=== PATIENT | male | born 1935 | race Caucasian/White ===

== ENCOUNTER 2017-05-25 16:58 | Emergency (ER) | payer MEDICARE, OTHER ==
[2017-05-25 17:38] LABS: #Eosinphils 0.2 thou/uL (0.0-0.7); #Lymphocytes 1.3 thou/uL (1.20-3.40); #Monocytes 0.6 thou/uL (0.11-0.59); #Neutrophils 7.8 thou/uL (1.40-6.50); %Basophils 0.2 % (0.0-1.0); %Eosinophils 1.7 % (0.0-10.0); %Lymphocytes 12.6 % (21.0-51.0); %Monocytes 6.1 % (0.0-10.0); %Neutrophils 79.3 % (42.0-75.0); Mean Corpuscular HGB CONC 32.3 g/dL (32.0-36.0); Mean Corpuscular Hemoglobin 31.4 pg (27.0-31.0); Mean Corpuscular Volume 97.3 fl (80.0-94.0); Platelet Count 314 thou/uL (130-400); RBC Distribution Width 14.5 % (11.5-14.5); Red Blood Cell (RBC) Count 4.14 mill/uL (4.70-6.10); White Blood Cell (WBC) Count 9.9 thou/uL (4.8-10.8)
--- NOTE | 2017-05-25 17:51 | RAD ---
PORTABLE AP CHEST X-RAY 05/25/17 HISTORY: Dyspnea. COMPARISON: CT thorax on 07/30/16. FINDINGS: There is increased density present at the right lung base, also seen on the CT of the thorax may be m inimally improved. This has the appearance of complex loculated area of pleural fluid on the CT exam. Patchy parenchymal changes at the right lung base are also seen which may be related to either scar ring or atelectasis. There is generalized volume loss at the right hemithorax, compared to the left. The left lung is clear aside from minimal linear densities at the lung base probably related to mild scarring or atelectasis. Cardiac silhouette and pulmonary vasculature are within normal limits. Vasc ular calcifications are seen in the thoracic aorta. IMPRESSION: 1. Pleural and parenchymal changes right lung base minimally improved from prior CT thorax on . Prior CT scan of the thorax demonstrated complex loculated right pleural fluid with adjacent a telectasis which probably accounts for findings on today's examination. 2. Generalized volume loss right hemithorax. 3. Minimal linear densities at the left lung base probably related to scarring. The left lower l obe pulmonary nodule seen on CT scan exam is not readily visible on this study. POS: [facility]
[2017-05-25 18:00] LABS: ALT (SGPT) 19 U/L (8-55); AST (SGOT) 18 U/L (5-34); Alkaline Phosphatase 92 U/L (40-150); Anion Gap 14 mmol/L (10-20); BUN (Urea Nitrogen) 21 mg/dL (8.4-25.7); Bilirubin, Total 0.4 mg/dL (0.2-1.2); Calc. Creatinine Clearance 0 mL/min (70-130); Calcium 9.9 mg/dL (7.8-10.44); Carbon Dioxide 28 mmol/L (23-31); Chloride 99 mmol/L (98-107); Estimated GFR-MDRD 81; Globulin 3.9 g/dL (2.4-3.5); Glucose 106 mg/dL (83-110); Potassium 5.1 mmol/L (3.5-5.1); Protein, Total 7.9 g/dL (5.8-8.1); Sodium 136 mmol/L (136-145)
== END 2017-05-25 20:36 | disposition home or self-care (01) ==
LOC: ERS 16:58
DX: J44.1 Chronic obstructive pulmonary disease with (acute) exacerbation (principal); E78.5 Hyperlipidemia, unspecified; I11.0 Hypertensive heart disease with heart failure; I50.9 Heart failure, unspecified; J44.9 Chronic obstructive pulmonary disease, unspecified; F17.210 Nicotine dependence, cigarettes, uncomplicated
CPT/HCPCS: 36415; 71045; 80053; 85025; 93005; 94640; 94664; 94760; J7620

== ENCOUNTER 2017-06-08 10:50 | Outpatient (CLI) | payer MEDICARE, OTHER ==
--- NOTE | 2017-06-08 11:57 | RAD ---
RADIOGRAPH OF CHEST TWO VIEWS: Comparison: 01-16-09 Indication: Dyspnea. FINDINGS: There is abnormal pleural based density involving the lateral and inferior right hemithorax which is decreased in volume compared to the left. There is parenchymal consolidation at the right lower lung zone. Linear density along the mid central right lung may relate to fluid along the minor fissure and /or a component of pleural thickening. Left lung is grossly clear. There is a subtle nodular density at the infralateral left lung base, indeterminate on the basis of this exam. Cardiac silhouette is en larged. There is vascular calcification. There is prominence of the left hilum. IMPRESSION: 1. Abnormal pleural and parenchymal density of the small volume right hemithorax. Component of the co mplex underlying pleural fluid and/or mass not excluded. 2. Subtle nodular density at inferolateral left lung, incompletely assessed. Consider CT thorax for f urther assessment of the above described findings. POS: [facility]
== END 2017-06-08 10:51 | disposition home or self-care (01) ==
LOC: RAD 10:50
PROVIDERS: ATTEND Internal Medicine
DX: R06.00 Dyspnea, unspecified (principal); J98.4 Other disorders of lung
CPT/HCPCS: 71046

== ENCOUNTER 2017-09-20 12:34 | Inpatient (IN) | payer MEDICARE, OTHER ==
[2017-09-20 15:24] LABS: Anion Gap 12 mmol/L (10-20); BUN (Urea Nitrogen) 12 mg/dL (8.4-25.7); Calc. Creatinine Clearance 0 mL/min (70-130); Calcium 8.8 mg/dL (7.8-10.44); Carbon Dioxide 33 mmol/L (23-31); Chloride 96 mmol/L (98-107); Estimated GFR-MDRD Greater than 90; Glucose 150 mg/dL (83-110); Magnesium 1.3 mg/dL (1.6-2.6); Sodium 138 mmol/L (136-145)
[2017-09-20 15:28] LABS: Troponin I 0.023 ng/mL (< 0.028)
[2017-09-20] MEDS ORDERED: Magnesium 2 GM/NS 0.9% 100 ML 2 GM in Premix Bag 1 BAG IVPB SCH (16:30)
[2017-09-20] MEDS: Potassium Chloride 20 MEQ TAB PO SCH (17:32)
[2017-09-20] MEDS ORDERED: Acetaminophen 325 MG TAB PO PRN (19:10)
[2017-09-20] MEDS ORDERED: Senokot 8.6 MG TAB PO PRN (19:10)
[2017-09-20] MEDS ORDERED: Ondansetron ODT 4 MG TAB PO PRN (19:10)
[2017-09-20] MEDS ORDERED: Ondansetron HCl/PF 4 MG/2 ML Vial IVP PRN (19:10)
[2017-09-20] MEDS ORDERED: Milk Of Magnesia 30 ML UDCUP PO PRN (19:10)
[2017-09-20] MEDS ORDERED: Calcium Carbonate 500 MG ChewTAB PO PRN (19:10)
--- NOTE | 2017-09-20 20:11 | HP ---
DATE OF ADMISSION: 09/20/2017 PRIMARY CARE PHYSICIAN: Flaca Escobar M.D. PRIMARY SHIPS EQUIPMENT ENGINEER: Andrea Khan M.D. PRIMARY COCONUT JELLY ROLLER: Parminder Low MD CHIEF COMPLAINT: Shortness of breath and cough of 4 days' duration. HISTORY OF PRESENT ILLNESS: The patient is an 81-year-old male with COPD and chronic systolic heart failure, presented to the emergency room at [place] with above symptoms. Over the last four days, the patient developed gradual worsening shortness of breath along with chest tightness, wheezing, and cough that was productive of thick brownish to yellowish phlegm. He tried using his inhalers without much relief. No recent immobilization, travel, sick contacts reported. He cannot recall any fever. He denies any palpitations, lightheadedness, dizziness or syncope. In the emergency room, his initial vital signs showed temperature of 98.4, respirations 18, pulse rate of 91 with blood pressure 148/85 with O2 saturation 83%. He received ceftriaxone, azithromycin, Lasix, potassium chloride, aspirin , nitropatch, oral potassium, DuoNebs with 125 Solu-Medrol, and was transferred to this facility with a diagnosis of CHF and COPD exacerbation with possible pneumonia. PAST MEDICAL HISTORY: 1. COPD. 2. Hyperlipidemia 3. Chronic systolic heart failure, followed by Dr. Khan. 4. Benign prostatic hypertrophy. 5. Coronary artery disease. 6. Hypertension. PAST SURGICAL HISTORY: 1. Cataract surgery. 2. Thoracentesis. 3. Cystoscopy. ALLERGIES: The patient denies any drug allergies. CURRENT HOME MEDICATIONS: The patient cannot recall any of his home medications. Family to bring all the medication bottles tomorrow. SOCIAL HISTORY: The patient currently lives at home. Quit smoking last month. He has a long history of smoking. He currently lives at home with his family. He is FULL CODE. He makes his own decisions with the help of his family. He denies any alcohol or drug use. FAMILY HISTORY: Both parents had congestive heart failure. REVIEW OF SYSTEMS: The following complete review of systems was negative, unless otherwise mentioned in the HPI or below: Constitutional: Weight loss or gain, ability to conduct usual activities. Skin: Rash, itching. Eyes: Double vision, pain. ENT/Mouth: Nose bleeding, neck stiffness, pain, tenderness. Cardiovascular: Palpitations, dyspnea on exertion, orthopnea. Respiratory: Shortness of breath, wheezing, cough, hemoptysis, fever or night sweats. Gastrointestinal: Poor appetite, abdominal pain, heartburn, nausea, vomiting, constipation, or diarrhea. Genitourinary: Urgency, frequency, dysuria, nocturia. Musculoskeletal: Pain, swelling. Neurologic/Psychiatric: Anxiety, depression. Allergy/Immunologic: Skin rash, bleeding tendency. PHYSICAL EXAMINATION: VITAL SIGNS: As discussed above. GENERAL: An 81-year-old male in mild to moderate respiratory distress, able to complete short phrases. HEENT: Head: Atraumatic, normocephalic. Sclerae are anicteric. Moist mucous membranes. No oral lesion. NECK: Supple. JVD appears to be elevated. No carotid bruit. LUNGS: Show diffuse expiratory wheezing with scattered bibasilar rales. There was accessory muscle use. Scattered rhonchi. HEART: S1, S2 present. Regular rate and rhythm, 2/6 systolic murmur over the mitral area. No heaves or pulsation. ABDOMEN: Soft, nontender, bowel sounds present, no rebound or guarding. EXTREMITIES: 2+ edema in bilateral lower extremities up to the knees. No calf tenderness. SKIN: Warm and dry. LYMPH NODES: No palpable lymph nodes in the neck. PERIPHERAL VASCULAR: Radial pulses palpable bilaterally. MUSCULOSKELETAL: No joint swelling or tenderness. LABORATORY FINDINGS: CBC showed WBC of 15.6 with hemoglobin 11.4, hematocrit 32.7, platelet count of 313. Chemistries showed sodium 138, potassium 2.8, chloride 95, bicarbonate 33, BUN 12, creatinine 0.7. BNP was 1264, albumin 2.7. Troponins were negative. IMAGING: EKG by my review showed sinus rhythm with nonspecific ST-T wave changes. Chest x-ray by my review showed pulmonary vascular congestion with suspected pneumonia at the right base. Official report is pending at this time. IMPRESSION AND PLAN: 1. Acute hypoxic respiratory failure secondary to congestive heart failure and chronic obstructive pulmonary disease exacerbation. 2. Acute chronic obstructive pulmonary disease exacerbation. We will continue nebulizer treatment with steroids, oxygen. We will consult Dr. Lwo in the morning. 3. Acute on chronic systolic heart failure exacerbation, ACC Stage C. We will consult Dr. Khan. Per patient report, he had recent stress test and echocardiogram. We will continue gentle diuretics. We will consult cardiac rehabilitation. Fluid restriction. We will start him on KEVIN inhibitors. Please note that patient is out of [facility] for more than a week per patient report. 4. Hypertension. We will resume his home medications once confirmed. We will add p.r.n. antihypertensives. 5. Hypokalemia, we will replace. 6. Hypomagnesemia, we will replace. 7. Moderate protein-calorie malnutrition. 8. Chronic respiratory failure, on home oxygen. 9. Benign prostatic hypertrophy. We will resume home medications once confirmed. 10. Hyperlipidemia. 11. Former smoker. The patient quit smoking last month. Plan of care was discussed with the patient in detail. He stated understanding. JORDYND
[2017-09-20] MEDS: Famotidine 20 MG TAB PO SCH (20:58)
[2017-09-20] MEDS: Montelukast Sodium 10 mg Tablet PO SCH (20:58)
[2017-09-20] MEDS: Doxycycline 100 MG CAP PO SCH (20:58)
[2017-09-20] MEDS: Lisinopril 2.5 MG TAB PO SCH (20:58)
[2017-09-20] MEDS: Atorvastatin Calcium 40 MG TAB PO SCH (20:59)
[2017-09-20] MEDS: Docusate 100 MG CAP PO SCH (20:59)
[2017-09-20] MEDS: Spironolactone 25 MG TAB PO SCH (21:00)
[2017-09-20] MEDS ORDERED: Potassium Chloride 20 MEQ TAB PO SCH (21:00)
[2017-09-21 04:47] LABS: #Lymphocytes 0.5 thou/uL (1.20-3.40); #Monocytes 0.5 thou/uL (0.11-0.59); #Neutrophils 9.5 thou/uL (1.40-6.50); %Basophils 0.4 % (0.0-1.0); %Eosinophils 0.1 % (0.0-10.0); %Lymphocytes 5.1 % (21.0-51.0); %Monocytes 4.7 % (0.0-10.0); %Neutrophils 89.8 % (42.0-75.0); Hemoglobin 10.3 g/dL (14.0-18.0); Mean Corpuscular HGB CONC 31.9 g/dL (32.0-36.0); Mean Corpuscular Hemoglobin 30.1 pg (27.0-31.0); Mean Corpuscular Volume 94.4 fl (80.0-94.0); Mean Platelet Volume 7.1 fL (7.4-10.4); Platelet Count 295 thou/uL (130-400); RBC Distribution Width 14.5 % (11.5-14.5); Red Blood Cell (RBC) Count 3.41 mill/uL (4.70-6.10); White Blood Cell (WBC) Count 10.6 thou/uL (4.8-10.8)
[2017-09-21 05:21] LABS: ALT (SGPT) 35 U/L (8-55); AST (SGOT) 22 U/L (5-34); Albumin 2.5 g/dL (3.4-4.8); Alkaline Phosphatase 118 U/L (40-150); Anion Gap 11 mmol/L (10-20); BUN (Urea Nitrogen) 16 mg/dL (8.4-25.7); Bilirubin, Total 0.5 mg/dL (0.2-1.2); Calc. Creatinine Clearance 90 mL/min (70-130); Calcium 8.3 mg/dL (7.8-10.44); Carbon Dioxide 32 mmol/L (23-31); Chloride 98 mmol/L (98-107); Estimated GFR-MDRD Greater than 90; Globulin 2.8 g/dL (2.4-3.5); Glucose 153 mg/dL (83-110); Magnesium 1.7 mg/dL (1.6-2.6); Phosphorus 2.9 mg/dL (2.3-4.7); Potassium 3.6 mmol/L (3.5-5.1); Protein, Total 5.3 g/dL (5.8-8.1); Sodium 137 mmol/L (136-145)
[2017-09-21] MEDS ORDERED: Sodium Chloride 0.9% 10 ML ONE (05:34)
[2017-09-21] MEDS: Furosemide 20 MG/2 ML VIAL SLOW IVP SCH ×2 (05:54→14:07)
[2017-09-21] MEDS: Famotidine 20 MG TAB PO SCH ×2 (08:54→20:48)
[2017-09-21] MEDS: Doxycycline 100 MG CAP PO SCH ×2 (08:54→20:47)
[2017-09-21] MEDS: Lisinopril 2.5 MG TAB PO SCH (08:54)
[2017-09-21] MEDS: Spironolactone 25 MG TAB PO SCH (08:54)
[2017-09-21] MEDS: Potassium Chloride 20 MEQ TAB PO SCH ×2 (08:54→16:14)
[2017-09-21] MEDS: Enoxaparin Sodium 30 MG/0.3 ML SYRINGE SC SCH (08:54)
[2017-09-21] MEDS: Aspirin 81 mg Enteric Coated Tablet PO SCH (08:55)
[2017-09-21] MEDS: Docusate 100 MG CAP PO SCH ×2 (08:55→20:48)
[2017-09-21] MEDS ORDERED: cefTRIAXone\\ROCEPHIN 1 GM in Sodium Chloride 0.9% 100 ML IVPB SCH (09:00)
[2017-09-21] MEDS ORDERED: Nebivolol HCl 2.5 MG TAB PO SCH (09:00)
[2017-09-21] MEDS ORDERED: Albuterol Sulfate 2.5 mg/3 ml Neb NEB PRN (15:27)
[2017-09-21] MEDS ORDERED: predniSONE 20 MG TAB PO SCH (15:30)
--- NOTE | 2017-09-21 15:30 | CON ---
DATE OF CONSULTATION: 09/21/2017 REASON FOR CONSULTATION: Acute on chronic systolic heart failure. PRIMARY CLINICAL ADMISSIONS MANAGER: Andrea Khan M.D. HISTORY OF PRESENT ILLNESS: Mr. Kerr is an 81-year-old gentleman with a previous history of cardiom yopathy with LVEF of 40%-45% and recently he stated he had increased shortness of breath. History is very difficult to obtain from Mr. Barriga. He is vague. He does state he has had weight loss, but barker s had significant lower extremity edema. He has chronic shortness of breath and has chronic COPD. Gennaro renner recently stopped all tobacco products 2 months ago after recent hospitalization. He also states he has been out of his Bystolic at home. PAST MEDICAL HISTORY: Systolic heart failure, BPH, CAD, hypertension, hyperlipidemia, COPD, cataract surgery, cystoscopy. ALLERGIES: None. SOCIAL HISTORY: As above. No alcohol use. FAMILY HISTORY: Negative for CAD. HOME MEDICATIONS: Include Bystolic, Lipitor, Singulair, lisinopril, aspirin, and spironolactone. REVIEW OF SYSTEMS: Ten-point review of systems reviewed as above, otherwise negative. PHYSICAL EXAMINATION: GENERAL: Patient is a pleasant male who is in no acute distress. The patient appears his stated age . VITAL SIGNS: Blood pressure 130/80, pulse 85, temperature 97.2. NEUROLOGIC: The patient is alert and oriented times 3 with no focal neurologic deficits. HEENT: Sclerae without icterus. Mouth has moist mucous membranes with normal pallor. NECK: No JVD. Carotid upstroke brisk. No bruits bilaterally. LUNGS: Rhonchi and rales bilaterally with mild crackles. BACK: No scoliosis or kyphosis. CARDIAC: Regular rate and rhythm with normal S1 and S2. No S3 or S4 noted. No significant rubs, murmurs, thrills, or gallops noted throughout the precordium. PMI is not displaced. There is no parasternal heave. ABDOMEN: Soft, nontender, nondistended. No peritoneal signs present. No hepatosplenomegaly. No abnormal striae. EXTREMITIES: 1-2+ pitting edema. SKIN: No gross abnormalities. PERTINENT LABORATORY DATA: Hemoglobin 10.3, creatinine 0.65, troponin 0.02. BNP of 1264. IMPRESSION: 1. Acute on chronic systolic heart failure. 2. Chronic obstructive pulmonary disease. 3. Coronary artery disease. RECOMMENDATIONS: The patient has been placed on 20 mg Lasix IV. We will increase to 40 mg IV. He h as also been placed back on his Bystolic. Continue antibiotic therapy. Also, continue lisinopril as prescribed. Echo with Doppler pending.
--- NOTE | 2017-09-21 16:42 | PDOC.PN ---
- Subjective Encounter Start Date: 09/21/17 Encounter Start Time: 15:00 Patient seen and examined for Resp failure. SOB improving. No new complaints. No overnight events - Objective Resuscitation Status: Resuscitation Status FULL:Full Resuscitation MAR Reviewed: Yes Vital Signs & Weight: Vital Signs (12 hours) Temp Pulse Resp BP BP Pulse Ox 09/21/17 15:52 97.9 F 107 H 18 123/87 95 09/21/17 14:34 88 20 85 L 09/21/17 12:00 97.2 F L 85 18 130/80 92 L 09/21/17 10:48 99 09/21/17 10:47 79 16 99 09/21/17 08:54 84 142/75 H 09/21/17 08:00 97.5 F L 84 18 142/75 H 99 09/21/17 07:15 77 18 99 Weight Admit Weight 154 lb 1 oz Weight 153 lb 4.8 oz I&O: 09/20/17 09/21/17 09/22/17 06:59 06:59 06:59 Intake Total 202 Output Total 300 Balance -98 Result Diagrams: 09/24/17 05:05 09/25/17 05:01 EKG Reviewed by me: Yes (Tele SR) Phys Exam - Physical Examination Pt in mild resp distress Respiratory: no rales Scat rhonchi/wheezing, Accessory muscle use, Symmetrical Cardiovascular: RRR, no rub no heaves/pulsations Gastrointestinal: soft, non-tender, no distention, positive bowel sounds Musculoskeletal: pulses present, edema present Neurological: non-focal, normal sensation, moves all 4 limbs Psychiatric: normal affect, A&O x 3 Dx/Plan (1) Acute hypoxemic respiratory failure Code(s): J96.01 - ACUTE RESPIRATORY FAILURE WITH HYPOXIA Status: Acute (2) Acute on chronic systolic heart failure Code(s): I50.23 - ACUTE ON CHRONIC SYSTOLIC (CONGESTIVE) HEART FAILURE Status : Acute Comment: improving, EF 35-40 % (3) COPD exacerbation Code(s): J44.1 - CHRONIC OBSTRUCTIVE PULMONARY DISEASE W (ACUTE) EXACERBATION Status: Acute Comment: improving (4) Electrolyte abnormality Code(s): E87.8 - OTH DISORDERS OF ELECTROLYTE AND FLUID BALANCE, NEC Status: Acute Comment: Hypokalemia/Hypomagnesemia (5) Pressure ulcer Code(s): L89.90 - PRESSURE ULCER OF UNSPECIFIED SITE, UNSPECIFIED STAGE Status : Chronic Comment: STAGE II PRESSURE ULCER TO R GREAT TOE,MEDIAL ASPECT/STAGE III PRESSURE ULCER TO L MEDIAL BUTTOCK - Present on admission - Plan out of bed/ambulate, DVT proph w/lovenox, DVT proph w/SCDs Cont diuresis, All home meds verified -: Cont Nebs/Atbx/Steroids -: AM labs -: Resume Flomax -: Cont to monitor, Cont current meds as below, Leg elevation Review of Systems - Review of Systems Respiratory: Cough, Dry, SOB with Excertion. negative: Shortness of Breath, Hemoptysis, Pleuritic Pain, Sputum, Wheezing Cardiovascular: negative: chest pain, palpitations, orthopnea, paroxysmal nocturnal dyspnea, edema, light headedness, other Gastrointestinal: negative: Nausea, Vomiting, Abdominal Pain, Diarrhea, Constipation, Melena, Hematochezia, Other - Medications/Allergies Allergies/Adverse Reactions: Allergies Allergy/AdvReac Type Severity Reaction Status Date / Time No Known Drug Allergies Allergy Verified 09/21/17 08:53 Medications: Current Medications Acetaminophen (Tylenol) 650 mg PO Q4H PRN PRN Reason: Headache/Fever or Pain Albuterol Sulfate (Ventolin) 2.5 mg NEB [id number] PRN PRN Reason: Wheezing Albuterol/Ipratropium (Duoneb) 3 ml NEB [id number] [facility] Aspirin (Ecotrin) 81 mg PO DAILY [facility] Last Admin: 09/21/17 08:55 Dose: 81 mg Atorvastatin Calcium (Lipitor) 40 mg PO HS [facility] Last Admin: 09/20/17 20:59 Dose: 40 mg Calcium Carbonate (Tums) 1,000 mg PO Q4H PRN PRN Reason: Heartburn or Indigestion Cefdinir (Omnicef) 300 mg PO BID [facility] Stop: 09/25/17 21:01 Docusate Sodium (Colace) 100 mg PO BID [facility] Last Admin: 09/21/17 08:55 Dose: 100 mg Doxycycline Hyclate (Vibramycin) 100 mg PO BID [facility] Last Admin: 09/21/17 08:54 Dose: 100 mg Dutasteride (Avodart) 0.5 mg PO DAILY [facility] Enoxaparin Sodium (Lovenox) 30 mg SC 0900 [facility] Last Admin: 09/21/17 08:54 Dose: 30 mg Famotidine (Pepcid) 20 mg PO BID [facility] Last Admin: 09/21/17 08:54 Dose: 20 mg Furosemide (Lasix) 20 mg SLOW IVP 0600,1400 [facility] Last Admin: 09/21/17 14:07 Dose: 20 mg Lisinopril (Zestril) 2.5 mg PO BID [facility] Last Admin: 09/21/17 08:54 Dose: 2.5 mg Magnesium Hydroxide (Milk Of Magnesium) 30 ml PO DAILYPRN PRN PRN Reason: Constipation Montelukast Sodium (Singulair) 10 mg PO [facility] Last Admin: 09/20/17 20:58 Dose: 10 mg Nebivolol (Bystolic) 2.5 mg PO DAILY [facility] Last Admin: 09/21/17 08:54 Dose: 2.5 mg Ondansetron HCl (Zofran Odt) 4 mg PO Q6H PRN PRN Reason: Nausea/Vomiting Ondansetron HCl (Zofran) 4 mg IVP Q6H PRN PRN Reason: Nausea/Vomiting Potassium Chloride (K-Dur) 20 meq PO BID-[facility] Last Admin: 09/21/17 16:14 Dose: 20 meq Prednisone (Prednisone) 40 mg PO NOW [facility] Stop: 09/21/17 17:30 Last Admin: 09/21/17 16:14 Dose: 40 mg Prednisone (Prednisone) 40 mg PO QAM-[facility] Stop: 09/25/17 08:01 Senna (Senokot) 2 tab PO HSPRN PRN PRN Reason: Constipation Spironolactone (Aldactone) 12.5 mg PO BID [facility] Last Admin: 09/21/17 08:54 Dose: 12.5 mg Tamsulosin HCl (Flomax) 0.4 mg PO [facility]
[2017-09-21] MEDS ORDERED: Furosemide 40 MG/4 ML VIAL SLOW IVP SCH (18:00)
--- NOTE | 2017-09-21 20:16 | CON ---
DATE OF CONSULTATION: 09/21/2017 SERVICE: Pulmonary Medicine. REASON FOR CONSULTATION: COPD exacerbation. HISTORY OF PRESENT ILLNESS: The patient is an 81-year-old white male with past medical history significant for profound COPD. He also has chronic systolic heart failure. He was in his usual state of health until about 4-5 days prior to admission. He had recently been in to his . She has been admitted to the facility in [place]. Unfortunately, he ran out of some of his medication. They were mail order medications. He did not have them for several days. He then developed increasing cough, congestion, shortness of breath, dyspnea on exertion. He started bringing up yellow sputum. He currently denies any fevers , chills, nausea or vomiting. I presented to the Emergency Department and was expecting to get sent back home. He did not take his oxygen to the Emergency Department and presented with saturations of 83%. He subsequently transitioned here. He denies any current fevers, chills, nausea, vomiting, otherwise comes in his usual state of health and has no specific complaints. PAST MEDICAL HISTORY: 1. COPD, profound. 2. Chronic hypoxic respiratory failure. 3. Chronic systolic heart failure. 4. BPH. 5. Coronary artery disease. 6. Hypertension. 7. Dyslipidemia. PAST SURGICAL HISTORY: 1. History of thoracentesis. 2. Cystoscopy. 3. Cataract surgery. ALLERGIES: No known drug allergies. MEDICATIONS LIST: List of his inpatient medications were reviewed. They were modified. SOCIAL HISTORY: Currently negative for tobacco, alcohol or illicit drug use. He has a greater than [id number] history of smoking, but quit only last month. He has no exposure to chemicals, dust asbestos or tuberculosis. FAMILY HISTORY: Noncontributory. REVIEW OF SYSTEMS: General, head, ears, eyes, nose, throat, cardiovascular, respiratory, GI, , musculoskeletal, neurologic and skin is negative except as stated in the HPI. PHYSICAL EXAMINATION: VITAL SIGNS: Afebrile, pulse 85, blood pressure 130/80, respirations 18, saturation 92% on room air. GENERAL: The patient is awake, alert, no apparent distress. LUNGS: Rhonchi are present. There is very poor airway movement. Dependent crackles are minimal. I cannot hear or appreciate any wheezing, but is truthfully not moving enough air to do that. He has a prolonged expiratory phase. HEART: Normal rate, regular. ABDOMEN: Soft, nontender, nondistended. Bowel sounds are positive. MUSCULOSKELETAL: No cyanosis or clubbing. No pitting in the bilateral lower extremities. LABORATORY DATA: WBC 10.6 and down trending, hemoglobin 10.3, platelets 295, 000. Potassium 3.6 and up trending. Basic metabolic profile and liver function studies are unremarkable. Troponin is negative. BNP is elevated at 1267, which is well above baseline, the last time it was collected; however, was 3 years ago. Cardiac enzymes are unremarkable. Blood cultures x2 are negative. IMAGING: Chest x-ray demonstrates a right-sided pleural effusion. The left lung has good aeration. There is flattening of the diaphragm. ASSESSMENT: 1. Acute on chronic hypoxic respiratory failure. 2. Acute on chronic systolic heart failure. 3. Chronic obstructive pulmonary disease with acute exacerbation. 4. Right-sided pleural effusion, enlarging. 5. Hypokalemia. PLAN: We will continue replacing his potassium. We will aggressively diurese him to euvolemia. Once he arrives there, repeat chest x-ray will be performed. If the effusion is resolving, we will likely just repeat a chest x-ray in the outpatient setting. If on the other hand, he clinically gets worse or the effusion persists/enlarges, we will undergo thoracentesis in 1-2 days. He will need to remain in the hospital for at least the next 24-48 hours while we address this issue. 70 minutes have been devoted to this patient in various activities. I personally reviewed all imaging studies and laboratory data noted within this document. For fifty percent of this time, I was interacting with the patient at the bedside or coordinating care with the care team. For the remainder of the time I was immediately available to the patient in the hospital unit. BERNARD
[2017-09-21] MEDS: Tamsulosin HCl 0.4 MG CAP PO SCH (20:47)
[2017-09-21] MEDS: Atorvastatin Calcium 40 MG TAB PO SCH (20:47)
[2017-09-21] MEDS: Montelukast Sodium 10 mg Tablet PO SCH (20:48)
[2017-09-21] MEDS: Cefdinir 300 MG CAP PO SCH (20:48)
[2017-09-21] MEDS ORDERED: Lisinopril 5 MG TAB PO SCH (21:00)
[2017-09-22 04:58] LABS: #Lymphocytes 0.8 thou/uL (1.20-3.40); #Neutrophils 12.4 thou/uL (1.40-6.50); %Basophils 0.2 % (0.0-1.0); %Eosinophils 0.1 % (0.0-10.0); %Lymphocytes 5.4 % (21.0-51.0); %Monocytes 7.1 % (0.0-10.0); %Neutrophils 87.2 % (42.0-75.0); Hemoglobin 10.7 g/dL (14.0-18.0); Mean Corpuscular HGB CONC 31.7 g/dL (32.0-36.0); Mean Corpuscular Volume 94.6 fl (80.0-94.0); Mean Platelet Volume 6.6 fL (7.4-10.4); Platelet Count 318 thou/uL (130-400); RBC Distribution Width 14.3 % (11.5-14.5); Red Blood Cell (RBC) Count 3.57 mill/uL (4.70-6.10); White Blood Cell (WBC) Count 14.2 thou/uL (4.8-10.8)
[2017-09-22 05:19] LABS: ALT (SGPT) 46 U/L (8-55); AST (SGOT) 27 U/L (5-34); Albumin 2.7 g/dL (3.4-4.8); Alkaline Phosphatase 114 U/L (40-150); Anion Gap 9 mmol/L (10-20); BUN (Urea Nitrogen) 18 mg/dL (8.4-25.7); Bilirubin, Total 0.4 mg/dL (0.2-1.2); Calc. Creatinine Clearance 82 mL/min (70-130); Calcium 8.6 mg/dL (7.8-10.44); Carbon Dioxide 37 mmol/L (23-31); Chloride 96 mmol/L (98-107); Estimated GFR-MDRD Greater than 90; Glucose 149 mg/dL (83-110); Magnesium 1.6 mg/dL (1.6-2.6); Phosphorus 3.5 mg/dL (2.3-4.7); Potassium 3.5 mmol/L (3.5-5.1); Protein, Total 5.7 g/dL (5.8-8.1); Sodium 138 mmol/L (136-145)
[2017-09-22] MEDS ORDERED: Furosemide 40 MG/4 ML VIAL SLOW IVP SCH ×2 (06:00→09:15)
--- NOTE | 2017-09-22 07:59 | PQF ---
CLINICAL DOCUMENTATION IMPROVEMENT CLARIFICATION FORM: ICD-10 Updated PLEASE DO AN ADDENDUM TO THE PROGRESS NOTE WITH ANY DOCUMENTATION UPDATES OR ADDITIONS AND CARRY THROUGH TO DC SUMMARY. THANK YOU. DATE: 09/22 ATTN: DR. CHRISTIANO MOLINA Please exercise your independent, professional judgment in responding to the clarification form. Clinical indicators are provided on the bottom of this form for your review Please check appropriate box(s): I (concur) with the Wound Care findings as stated below. [ ] Pressure Ulcer: (Stage I: Erythema; Stage II: Partial thickness; Stage III : Full thickness; Stage IV: Necrosis to muscle/bone) [ ] Location: POA: [ ] Yes [ ] No[ ] Unable to determine Stage (I to IV): (Left Right Bilateral N/A ) [ ] Location: POA: [ ] Yes [ ] No[ ] Unable to determine Stage (I to IV): (Left Right Bilateral N/A ) [ ] Location: POA: [ ] Yes [ ] No[ ] Unable to determine Stage (I to IV): (Left Right Bilateral N/A ) [ ] Other diagnosis [ ] Unable to determine In addition, please specify: Present on Admission (POA): [ ] Yes [ ] No [ ] Unable to determine For continuity of documentation, please document condition throughout progress notes and discharge summary. Thank You. CLINICAL INDICATORS - SIGNS / SYMPTOMS / LABS NURSING ADMISSION SKIN ASSESSMENT 5/14: STAGE III PRESSURE ULCER TO L BUTTOCK WOUND CARE CONSULT DOCUMENTATION 09/21: STAGE II PRESSURE ULCER TO R GREAT TOE, MEDIAL ASPECT STAGE III PRESSURE ULCER TO L MEDIAL BUTTOCK RISK FACTORS: MODERATE PROTEIN CALORIE MALNUTRITION (PHYSICIAN H&P) LOW ALBUMIN (2.5-2.7, 09/21 & ) TREATMENTS: WOUND CARE CONSULT & TREATMENT SPECIALTY MATTRESS TURN Q2 HRS THANK YOU! Natalie (This form is maintained as a part of the permanent medical record) 2014 [employer]. All Rights Reserved Natalie Oakley RN, BSN [email or web address] Office: [phone] [facility] SYSTEM[facility]
[2017-09-22] MEDS ORDERED: Carvedilol 3.125 MG TAB PO SCH ×2 (08:00→08:55)
[2017-09-22] MEDS ORDERED: Lisinopril 5 MG TAB PO SCH (08:53)
[2017-09-22] MEDS: Aspirin 81 mg Enteric Coated Tablet PO SCH (08:54)
[2017-09-22] MEDS: Spironolactone 25 MG TAB PO SCH (08:54)
[2017-09-22] MEDS: Cefdinir 300 MG CAP PO SCH ×2 (08:54→21:22)
[2017-09-22] MEDS: predniSONE 20 MG TAB PO SCH (08:54)
[2017-09-22] MEDS: Potassium Chloride 20 MEQ TAB PO SCH ×3 (08:54→16:16)
[2017-09-22] MEDS: Doxycycline 100 MG CAP PO SCH ×2 (08:55→21:22)
[2017-09-22] MEDS: Dutasteride 0.5 MG CAP PO SCH (08:55)
[2017-09-22] MEDS: Enoxaparin Sodium 30 MG/0.3 ML SYRINGE SC SCH (08:55)
[2017-09-22] MEDS: Famotidine 20 MG TAB PO SCH ×2 (08:55→21:22)
[2017-09-22] MEDS: Docusate 100 MG CAP PO SCH ×2 (08:55→21:22)
[2017-09-22] MEDS ORDERED: Carvedilol 6.25 MG TAB PO SCH (09:15)
[2017-09-22] MEDS ORDERED: Lisinopril 10 MG TAB PO SCH ×2 (09:30→21:00)
[2017-09-22] MEDS: Furosemide 100 MG/10 ML VIAL SLOW IVP SCH (14:20)
[2017-09-22] MEDS: Carvedilol 6.25 MG TAB PO SCH (16:16)
--- NOTE | 2017-09-22 20:18 | PDOC.PN ---
- Subjective Encounter Start Date: 09/22/17 Encounter Start Time: 19:00 Patient seen and examined for resp failure. SOB improving. Diuresing well. No new complaints. No overnight events - Objective Resuscitation Status: Resuscitation Status FULL:Full Resuscitation MAR Reviewed: Yes Vital Signs & Weight: Vital Signs (12 hours) Temp Pulse Resp BP Pulse Ox 09/22/17 19:40 76 16 96 09/22/17 16:15 97.6 F 79 17 138/76 98 09/22/17 15:10 77 18 98 09/22/17 11:18 97.7 F 87 22 H 133/76 97 09/22/17 08:51 97.5 F L 101 H 22 H 154/72 H 92 L Weight Admit Weight 154 lb 1 oz Weight 152 lb I&O: 09/21/17 09/22/17 09/23/17 06:59 06:59 06:59 Intake Total 202 1440 500 Output Total 300 2150 2024 Balance -98 -710 -1525 Result Diagrams: 09/24/17 05:05 09/25/17 05:01 EKG Reviewed by me: Yes (Tele SR) Phys Exam - Physical Examination Constitutional: NAD Respiratory: no wheezing, no rhonchi Scat rales at bases Cardiovascular: RRR, no rub Gastrointestinal: soft, positive bowel sounds Musculoskeletal: edema present Neurological: moves all 4 limbs Dx/Plan (1) Acute hypoxemic respiratory failure Code(s): J96.01 - ACUTE RESPIRATORY FAILURE WITH HYPOXIA Status: Acute (2) Acute on chronic systolic heart failure Code(s): I50.23 - ACUTE ON CHRONIC SYSTOLIC (CONGESTIVE) HEART FAILURE Status : Acute Comment: improving, EF 35-40 % (3) COPD exacerbation Code(s): J44.1 - CHRONIC OBSTRUCTIVE PULMONARY DISEASE W (ACUTE) EXACERBATION Status: Acute Comment: improving (4) Electrolyte abnormality Code(s): E87.8 - OTH DISORDERS OF ELECTROLYTE AND FLUID BALANCE, NEC Status: Acute Comment: Hypokalemia/Hypomagnesemia (5) Pressure ulcer Code(s): L89.90 - PRESSURE ULCER OF UNSPECIFIED SITE, UNSPECIFIED STAGE Status : Chronic Comment: STAGE II PRESSURE ULCER TO R GREAT TOE,MEDIAL ASPECT/STAGE III PRESSURE ULCER TO L MEDIAL BUTTOCK - Present on admission - Plan respiratory therapy, DVT proph w/lovenox, DVT proph w/SCDs Cont diuretics/ACEI/Aldactone -: Cont Prednisone/Atbx/Nebs -: AM labs -: Cont to monitor -: Home O2 eval in AM Review of Systems - Review of Systems Constitutional: negative: fever, chills, sweats, weakness, malaise, other Gastrointestinal: negative: Nausea, Vomiting, Abdominal Pain, Diarrhea, Constipation, Melena, Hematochezia, Other - Medications/Allergies Allergies/Adverse Reactions: Allergies Allergy/AdvReac Type Severity Reaction Status Date / Time No Known Drug Allergies Allergy Verified 09/21/17 08:53 Medications: Current Medications Acetaminophen (Tylenol) 650 mg PO Q4H PRN PRN Reason: Headache/Fever or Pain Albuterol Sulfate (Ventolin) 2.5 mg NEB [id number] PRN PRN Reason: Wheezing Albuterol/Ipratropium (Duoneb) 3 ml NEB [id number] [facility] Last Admin: 09/22/17 19:40 Dose: 3 ml Aspirin (Ecotrin) 81 mg PO DAILY [facility] Last Admin: 09/22/17 08:54 Dose: 81 mg Atorvastatin Calcium (Lipitor) 40 mg PO HS [facility] Last Admin: 09/21/17 20:47 Dose: 40 mg Calcium Carbonate (Tums) 1,000 mg PO Q4H PRN PRN Reason: Heartburn or Indigestion Carvedilol (Coreg) 6.25 mg PO BID-[facility] Last Admin: 09/22/17 16:16 Dose: 6.25 mg Cefdinir (Omnicef) 300 mg PO BID [facility] Stop: 09/25/17 21:01 Last Admin: 09/22/17 08:54 Dose: 300 mg Docusate Sodium (Colace) 100 mg PO BID [facility] Last Admin: 09/22/17 08:55 Dose: 100 mg Doxycycline Hyclate (Vibramycin) 100 mg PO BID [facility] Last Admin: 09/22/17 08:55 Dose: 100 mg Dutasteride (Avodart) 0.5 mg PO DAILY [facility] Last Admin: 09/22/17 08:55 Dose: 0.5 mg Enoxaparin Sodium (Lovenox) 30 mg SC 0900 [facility] Last Admin: 09/22/17 08:55 Dose: 30 mg Famotidine (Pepcid) 20 mg PO BID [facility] Last Admin: 09/22/17 08:55 Dose: 20 mg Furosemide (Lasix) 80 mg SLOW IVP 0600,1400 [facility] Last Admin: 09/22/17 14:20 Dose: 80 mg Lisinopril (Zestril) 10 mg PO BID [facility] Magnesium Hydroxide (Milk Of Magnesium) 30 ml PO DAILYPRN PRN PRN Reason: Constipation Montelukast Sodium (Singulair) 10 mg PO [facility] Last Admin: 09/21/17 20:48 Dose: 10 mg Ondansetron HCl (Zofran Odt) 4 mg PO Q6H PRN PRN Reason: Nausea/Vomiting Ondansetron HCl (Zofran) 4 mg IVP Q6H PRN PRN Reason: Nausea/Vomiting Potassium Chloride (K-Dur) 20 meq PO TID-[facility] Stop: 09/22/17 23:59 Last Admin: 09/22/17 16:16 Dose: 20 meq [facility]) [facility] Stop: 09/25/17 08:01 Last Admin: 09/22/17 08:54 Dose: 40 mg Senna (Senokot) 2 tab PO HSPRN PRN PRN Reason: Constipation Sodium Chloride (Flush - Normal Saline) 10 ml IVF Q12HR АННА Sodium Chloride (Flush - Normal Saline) 10 ml IVF PRN PRN PRN Reason: Saline Flush Spironolactone (Aldactone) 25 mg PO QAM-[facility] Last Admin: 09/22/17 08:54 Dose: 25 mg Tamsulosin HCl (Flomax) 0.4 mg PO [facility] Last Admin: 09/21/17 20:47 Dose: 0.4 mg
[2017-09-22] MEDS: Montelukast Sodium 10 mg Tablet PO SCH (21:22)
[2017-09-22] MEDS: Atorvastatin Calcium 40 MG TAB PO SCH (21:22)
[2017-09-22] MEDS: Tamsulosin HCl 0.4 MG CAP PO SCH (21:23)
[2017-09-23] MEDS: Furosemide 100 MG/10 ML VIAL SLOW IVP SCH ×2 (05:53→19:24)
[2017-09-23 06:04] LABS: Anion Gap 16 mmol/L (10-20); BUN (Urea Nitrogen) 24 mg/dL (8.4-25.7); Calc. Creatinine Clearance 80 mL/min (70-130); Carbon Dioxide 31 mmol/L (23-31); Chloride 95 mmol/L (98-107); Estimated GFR-MDRD Greater than 90; Glucose 84 mg/dL (83-110); Magnesium 1.7 mg/dL (1.6-2.6); Potassium 4.2 mmol/L (3.5-5.1); Sodium 138 mmol/L (136-145)
[2017-09-23] MEDS ORDERED: Furosemide 100 MG/10 ML VIAL SLOW IVP SCH (08:45)
[2017-09-23] MEDS ORDERED: Enoxaparin Sodium 40 MG/0.4 ML SYRINGE SC SCH (09:00)
[2017-09-23] MEDS ORDERED: Metolazone 5 MG TAB PO SCH ×2 (09:00→09:30)
[2017-09-23] MEDS: Cefdinir 300 MG CAP PO SCH ×2 (09:26→21:00)
[2017-09-23] MEDS: predniSONE 20 MG TAB PO SCH (09:26)
[2017-09-23] MEDS: Aspirin 81 mg Enteric Coated Tablet PO SCH (09:26)
[2017-09-23] MEDS: Carvedilol 6.25 MG TAB PO SCH ×2 (09:26→19:08)
[2017-09-23] MEDS: Famotidine 20 MG TAB PO SCH ×2 (09:27→21:00)
[2017-09-23] MEDS: Spironolactone 25 MG TAB PO SCH (09:27)
[2017-09-23] MEDS: Doxycycline 100 MG CAP PO SCH ×2 (09:27→21:00)
[2017-09-23] MEDS: Lisinopril 20 MG TAB PO SCH ×2 (09:27→21:00)
[2017-09-23] MEDS: Docusate 100 MG CAP PO SCH ×2 (09:28→21:05)
[2017-09-23] MEDS: Dutasteride 0.5 MG CAP PO SCH (09:28)
[2017-09-23 14:16] LABS: Bilirubin Negative (Negative); Blood, Urine Moderate (Negative); Clarity CLEAR (Clear); Glucose, Urine (Dipstick) Negative (Negative); Leukocyte Negative (Negative); Nitrite Negative (Negative); Protein, Urine (Dipstick) Negative (Neg-Trace); Specific Gravity, Urine 1.009 (1.002-1.036)
[2017-09-23 14:18] LABS: Bacteria/HPF None Seen HPF (None Seen); Hyaline Casts/LPF 0-3 HYALINE CAST LPF (0-3 Hyaline); Squamous Epithelial None Seen HPF (0-3); WBC/HPF None Seen HPF (0-3)
--- NOTE | 2017-09-23 17:47 | PDOC.PN ---
- Subjective Encounter Start Date: 09/23/17 Encounter Start Time: 15:00 Patient seen and examined for CHF/Resp failure. Urinary retention - johnson placed. No new complaints. No overnight events - Objective Resuscitation Status: Resuscitation Status FULL:Full Resuscitation MAR Reviewed: Yes Vital Signs & Weight: Vital Signs (12 hours) Temp Pulse Resp BP Pulse Ox 09/23/17 13:27 73 16 94 L 09/23/17 11:24 97.6 F 78 16 98/63 93 L 09/23/17 08:00 97.6 F 71 16 99 09/23/17 07:55 71 16 100 09/23/17 07:30 97.6 F 89 16 173/72 H 99 Weight Admit Weight 154 lb 1 oz Weight 145 lb 11.2 oz I&O: 09/22/17 09/23/17 09/24/17 06:59 06:59 06:59 Intake Total 1440 740 Output Total 2150 2975 Balance -912 -8819 Result Diagrams: 09/24/17 05:05 09/25/17 05:01 EKG Reviewed by me: Yes (Tele SR) Phys Exam - Physical Examination Constitutional: NAD Respiratory: no wheezing, no rhonchi Cardiovascular: RRR, no rub Gastrointestinal: soft, non-tender, positive bowel sounds Musculoskeletal: edema present Dx/Plan (1) Acute hypoxemic respiratory failure Code(s): J96.01 - ACUTE RESPIRATORY FAILURE WITH HYPOXIA Status: Acute (2) Acute on chronic systolic heart failure Code(s): I50.23 - ACUTE ON CHRONIC SYSTOLIC (CONGESTIVE) HEART FAILURE Status : Acute Comment: improving, EF 35-40 % (3) COPD exacerbation Code(s): J44.1 - CHRONIC OBSTRUCTIVE PULMONARY DISEASE W (ACUTE) EXACERBATION Status: Acute Comment: improving (4) Electrolyte abnormality Code(s): E87.8 - OTH DISORDERS OF ELECTROLYTE AND FLUID BALANCE, NEC Status: Acute Comment: Hypokalemia/Hypomagnesemia (5) Pressure ulcer Code(s): L89.90 - PRESSURE ULCER OF UNSPECIFIED SITE, UNSPECIFIED STAGE Status : Chronic Comment: STAGE II PRESSURE ULCER TO R GREAT TOE,MEDIAL ASPECT/STAGE III PRESSURE ULCER TO L MEDIAL BUTTOCK - Present on admission (6) Urine retention Code(s): R33.9 - RETENTION OF URINE, UNSPECIFIED Status: Acute Comment: s/p johnson - Plan DVT proph w/lovenox, DVT proph w/SCDs Cont diuretics/ACEI/Aldactone/fluid rest - AM labs -: Cont Atbx/Steroids -: Urology consult, cont Flomax -: Cont current meds as below -: DC planning Review of Systems - Review of Systems Respiratory: Cough, Dry, SOB with Excertion. negative: Shortness of Breath, Hemoptysis, Pleuritic Pain, Sputum, Wheezing Cardiovascular: negative: chest pain, palpitations, orthopnea, paroxysmal nocturnal dyspnea, edema, light headedness, other - Medications/Allergies Allergies/Adverse Reactions: Allergies Allergy/AdvReac Type Severity Reaction Status Date / Time No Known Drug Allergies Allergy Verified 09/21/17 08:53 Medications: Current Medications Acetaminophen (Tylenol) 650 mg PO Q4H PRN PRN Reason: Headache/Fever or Pain Albuterol Sulfate (Ventolin) 2.5 mg NEB [id number] PRN PRN Reason: Wheezing Albuterol/Ipratropium (Duoneb) 3 ml NEB [id number] Last Admin: 09/23/17 13:27 Dose: 3 ml Aspirin (Ecotrin) 81 mg PO DAILY [facility] Last Admin: 09/23/17 09:26 Dose: 81 mg Atorvastatin Calcium (Lipitor) 40 mg PO HS [facility] Last Admin: 09/22/17 21:22 Dose: 40 mg Calcium Carbonate (Tums) 1,000 mg PO Q4H PRN PRN Reason: Heartburn or Indigestion Carvedilol (Coreg) 6.25 mg PO BID-[facility] Last Admin: 09/23/17 09:26 Dose: 6.25 mg Cefdinir (Omnicef) 300 mg PO BID [facility] Stop: 09/25/17 21:01 Last Admin: 09/23/17 09:26 Dose: 300 mg Docusate Sodium (Colace) 100 mg PO BID [facility] Last Admin: 09/23/17 09:28 Dose: Not Given Doxycycline Hyclate (Vibramycin) 100 mg PO BID [facility] Last Admin: 09/23/17 09:27 Dose: 100 mg Dutasteride (Avodart) 0.5 mg PO DAILY [facility] Last Admin: 09/23/17 09:28 Dose: 0.5 mg Enoxaparin Sodium (Lovenox) 40 mg SC 0900 [facility] Last Admin: 09/23/17 09:28 Dose: 40 mg Famotidine (Pepcid) 20 mg PO BID [facility] Last Admin: 09/23/17 09:27 Dose: 20 mg Furosemide (Lasix) 80 mg SLOW IVP 0600,1400 [facility] Last Admin: 09/23/17 05:53 Dose: 80 mg Lisinopril (Zestril) 20 mg PO BID [facility] Last Admin: 09/23/17 09:27 Dose: 20 mg Magnesium Chloride (Slow-Mag) 64 mg PO 0600,1800 [facility] Magnesium Hydroxide (Milk Of Magnesium) 30 ml PO DAILYPRN PRN PRN Reason: Constipation Metolazone (Zaroxolyn) 5 mg PO 0830 [facility] Montelukast Sodium (Singulair) 10 mg PO [facility] Last Admin: 09/22/17 21:22 Dose: 10 mg Ondansetron HCl (Zofran Odt) 4 mg PO Q6H PRN PRN Reason: Nausea/Vomiting Ondansetron HCl (Zofran) 4 mg IVP Q6H PRN PRN Reason: Nausea/Vomiting Prednisone (Prednisone) 40 mg PO QA-[facility] Stop: 09/25/17 08:01 Last Admin: 09/23/17 09:26 Dose: 40 mg Senna (Senokot) 2 tab PO HSPRN PRN PRN Reason: Constipation Sodium Chloride (Flush - Normal Saline) 10 ml IVF Q12HR [facility] Last Admin: 09/22/17 21:23 Dose: 10 ml Sodium Chloride (Flush - Normal Saline) 10 ml IVF PRN PRN PRN Reason: Saline Flush Spironolactone (Aldactone) 25 mg PO QAM-[facility] Last Admin: 09/23/17 09:27 Dose: 25 mg Tamsulosin HCl (Flomax) 0.4 mg PO [facility] Last Admin: 09/22/17 21:23 Dose: 0.4 mg
[2017-09-23] MEDS: Magnesium Chloride 64 MG TAB PO SCH (19:14)
--- NOTE | 2017-09-23 19:27 | CON ---
DATE OF CONSULTATION: 09/23/2017 PRIMARY CARE PHYSICIAN: Dr. Escobar. REFERRING: Dr. Nagel with Hospitalist. REASON FOR CONSULT: Acute urinary retention. HISTORY OF PRESENT ILLNESS: Mr. Kerr is a pleasant 81-year-old male who presented to my office back in 07/2016 with postvoid residual of 374 mL. He presented for a second opinion, he was previously followed by [facility], Dr. Miller regarding his BPH, history of elevated PSA, incidental prostatic nodule. He had previously undergone thoracocentesis to [facility], cytology negative. The patient continues to smoke, history of 60-pack- year smoking history. He denies sensation of incomplete void. His initial digital rectal exam demonstrated a small right mid/apical nodule with no significant extension. Given his advanced age and significant cardiopulmonary comorbidities, I discussed with patient regarding options regarding PSA, prostate cancer workup. He did not desire for the PSA nor prostate biopsy nor treatment for his BPH with surgical intervention as he is fully aware of his comorbidities and his frail nature. He has canceled multiple followup appointments with me, as he has been dealing with his 's illness as well. He presented due to shortness of breath, exacerbation of chronic obstructive pulmonary disease, chronic systolic heart failure. He has been diuresed, and due to sensation of incomplete void, postvoid residual bladder scan was obtained , as this read over 1 liter, indwelling Reyes catheter was placed by nursing staff obtaining 1200 mL of clear dilute urine. He states that prior to presentation to the hospital, he has difficulty quantifying/characterizing his voiding status. PAST MEDICAL HISTORY: Hypertension, hypercholesterolemia, severe COPD, BPH, coronary artery disease, cardiomyopathy, CHF, ongoing tobacco abuse. PAST SURGICAL HISTORY: Cataract thoracocentesis at [facility], cytology negative, 08/27/2016. Local cystoscopy on 11/2016 which I performed demonstrated moderate to mild BPH, no urethral stricture. His last postvoid residual was 0, improved with medical therapy of Flomax, dual adjunct with Avodart, which was started 11/2016. SOCIAL HISTORY: As above. Continues to smoke. CURRENT MEDICATIONS: Include Tylenol, albuterol, DuoNeb, baby aspirin, Lipitor , Coreg, Omnicef, Colace, doxycycline, Avodart, Lovenox 40 mg subcu, Pepcid, Lasix 80 mg b.i.d., lisinopril, Milk of Magnesia, Zaroxolyn, Singulair, Zofran, prednisone, Flomax, Aldactone. ALLERGIES: No known drug allergies. PHYSICAL EXAMINATION: VITAL SIGNS: Stable at 97.6, 73, 16, 94% on room air. Blood pressure variable from 173, 98 systolic, diastolic variable from 70-63. I's and O's, he is negative 2.2 liters. GENERAL: The patient is an elderly, frail male, appears deconditioned. Has dry cough. HEENT: Grossly unremarkable. HEART: Regular rate. LUNGS: Intermittent wheezing. ABDOMEN: Soft. Umbilical hernia. No rigidity, no rebound, no suprapubic tenderness is appreciated. GENITOURINARY: Prostate volume approximately 30 grams. On today's exam, there is a subtle right mid apical nodularity appears to be significantly less than on prior exam. This is a subtle finding. EXTREMITIES: Bilateral pitting edema consistent with fluid overload with venous stasis changes of the lower extremity. IMPRESSION/PLAN: 1. Mr. Kerr is an 81-year-old male, who currently admitted for acute respiratory failure. 2. Chronic obstructive pulmonary disease exacerbation. 3. History of cardiomyopathy with urologic consultation obtained on this consultation due to acute urinary retention with significant postvoid residual of 1.2 liters. The patient currently on aggressive diuretics Due to significant postvoid residual, I do recommend indwelling Reyes catheter to remain in situ. I informed the patient that he will be discharged with Reyes catheter to leg bag gravity bag. Per medical service, he is cleared to be going home tomorrow with home O2. Informed patient that I will see him in 1-2 week interval for a voiding trial. He must continue his Flomax and Avodart. UA , C&S was advised. 4. History of elevated PSA of 4.9 with history of small right apical nodule. The patient has been fully informed regarding options. Given his advanced age and comorbidities, on observation with no further PSA/prostate biopsy. We will follow along with you on this admission. will provide followup appointment for a voiding trial. BERNARD
[2017-09-23] MEDS: Atorvastatin Calcium 40 MG TAB PO SCH (21:00)
[2017-09-23] MEDS: Tamsulosin HCl 0.4 MG CAP PO SCH (21:00)
[2017-09-23] MEDS: Montelukast Sodium 10 mg Tablet PO SCH (21:00)
--- NOTE | 2017-09-23 21:01 | PRG ---
DATE OF SERVICE: 09/23/2017 SERVICE: Pulmonary Medicine. INTERVAL HISTORY: The patient is doing fine from a respiratory standpoint. He is breathing comforta jagdeep. His lower extremity swelling is improving a little bit. Otherwise, there has been no interval change to his condition. He denies any current fevers or chills. No overnight events occurred. PHYSICAL EXAMINATION: VITAL SIGNS: Afebrile, pulse 71, blood pressure 144/65, respirations 16, saturation 94% on room air. GENERAL: The patient is awake, alert, no apparent distress. LUNGS: Decent air entry without prolonged expiratory phase. Dependent crackles are present. HEART: Normal rate, regular. ABDOMEN: Soft, nontender, nondistended. Bowel sounds are positive. MUSCULOSKELETAL: No cyanosis or clubbing. There are 2+ pitting in the bilateral lower extremities. NEUROLOGIC: Grossly nonfocal. LABORATORY DATA: Basic metabolic profile is completely unremarkable. Magnesium 1.7. IMAGING: Echocardiogram demonstrates 35%-40% ejection fraction. Severe mitral regurgitation is also noted. ASSESSMENT: 1. Acute on chronic hypoxic respiratory failure. 2. Acute on chronic systolic and valvular heart failure. 3. Mitral regurgitation, severe. 4. Chronic obstructive pulmonary disease with acute exacerbation, mild. 5. Right-sided pleural effusion, enlarging. 6. Hypokalemia, resolved. PLAN: We will replace the magnesium. I will repeat a chest x-ray tomorrow morning after all the diu resis that has occurred. The patient has a history of thoracentesis on the right side and apparently , nothing needs to be done about it. Additional procedures will be considered after we review the est x-ray.
[2017-09-24] MEDS: Magnesium Chloride 64 MG TAB PO SCH ×2 (05:16→18:41)
[2017-09-24] MEDS: Furosemide 100 MG/10 ML VIAL SLOW IVP SCH (05:16)
[2017-09-24 05:22] LABS: Hemoglobin 12.6 g/dL (14.0-18.0); Platelet Count 364 thou/uL (130-400)
[2017-09-24 05:41] LABS: Albumin 2.8 g/dL (3.4-4.8); BUN (Urea Nitrogen) 31 mg/dL (8.4-25.7); Calc. Creatinine Clearance 64 mL/min (70-130); Calcium 8.9 mg/dL (7.8-10.44); Estimated GFR-MDRD 90; Glucose 118 mg/dL (83-110); Magnesium 1.6 mg/dL (1.6-2.6); Phosphorus 3.6 mg/dL (2.3-4.7)
[2017-09-24 05:50] LABS: Anion Gap 13 mmol/L (10-20); Carbon Dioxide 39 mmol/L (23-31); Chloride 90 mmol/L (98-107); Sodium 139 mmol/L (136-145)
[2017-09-24] MEDS: predniSONE 20 MG TAB PO SCH (08:30)
[2017-09-24] MEDS: Spironolactone 25 MG TAB PO SCH (08:30)
[2017-09-24] MEDS: Carvedilol 6.25 MG TAB PO SCH ×2 (08:30→17:46)
[2017-09-24] MEDS ORDERED: Metolazone 5 MG TAB PO SCH (08:30)
[2017-09-24] MEDS: Lisinopril 20 MG TAB PO SCH ×2 (08:31→20:29)
[2017-09-24] MEDS: Cefdinir 300 MG CAP PO SCH ×2 (08:31→20:29)
[2017-09-24] MEDS: Dutasteride 0.5 MG CAP PO SCH (08:31)
[2017-09-24] MEDS: Famotidine 20 MG TAB PO SCH ×2 (08:31→20:29)
[2017-09-24] MEDS: Docusate 100 MG CAP PO SCH ×2 (08:31→20:29)
[2017-09-24] MEDS: Aspirin 81 mg Enteric Coated Tablet PO SCH (08:31)
[2017-09-24] MEDS: Doxycycline 100 MG CAP PO SCH ×2 (08:31→20:29)
[2017-09-24] MEDS: Amiodarone 200 MG TAB PO SCH ×2 (09:54→20:29)
[2017-09-24] MEDS: Potassium Chloride 20 MEQ TAB PO SCH ×3 (09:55→20:30)
--- NOTE | 2017-09-24 10:12 | PRG ---
DATE OF SERVICE: 09/24/2017 SUBJECTIVE: The patient is currently receiving nebulizer treatment, no new complaints. OBJECTIVE: VITAL SIGNS: Stable 97.6, 81, 15, 94%, 162/79. I's and O's 240 in, 1900 out. ABDOMEN: Soft, nontender, nondistended. GENITOURINARY: Reyes catheter draining concentrated urine. PERTINENT LABORATORY DATA: H&H 12.6 and 39, creatinine 0.82. UA from Reyes catheter demonstrates clear, negative nitrites, no bacteria, 11-20 rbcs. IMPRESSION AND PLAN: 1. Mr. Kerr is an 81-year-old male who transferred care from [facility], previously fo llowed by Dr. Miller for history of elevated PSA small prostatic nodule. We have previously discuss ed treatment plan regarding this. Given his age and comorbidities, he is on observation. 2. Current admission due to chronic obstructive pulmonary disease exacerbation, respiratory failure, cardiomyopathy, congestive heart failure, and undergoing aggressive diuresis. Urology consultation obtained due to PVR of 1.2 liters. I informed the patient and he will be discharged with indwelling Reyes catheter to gravity/leg bag. Due to significant PVR, more over aggressive diuresis. His UA is grossly unremarkable. Microscopic hematuria consistent with Reyse catheter placement and I do not s ee any significant bacteria. From a urologic perspective, he does not need antibiotics. The patient has a chest x-ray this morning pending, he may be discharged if medically stable. Followup appointm ent next week for a voiding trial in chart. Please make sure the patient is discharged with his BPH meds. Call if any questions or concerns.
--- NOTE | 2017-09-24 12:22 | RAD ---
RADIOGRAPH CHEST 2 VIEWS: Date: 09/24/17. Time: 10:14 a.m. HISTORY: An 81-year-old male with dyspnea and right pleural effusion. COMPARISON: 09/20/17. FINDINGS: The previous study demonstrated total opacification of the lower 2/3 of the right lung. On the curre nt study, the lower 1/2 to 2/3 of the right lung is again opacified, but there is now a large area of mixed low and intermediate density within this opacified component, which may represent partially ae rated lung. However, a lung abscess could also have this appearance. There is no pleural effusion o n the left side. No cardiomegaly or pulmonary edema. No consolidation in the left lung. No pneumot horax. IMPRESSION: 1. Moderate or large right pleural effusion. 2. Underlying consolidation of the right lower lobe and right middle lobe. 3. Interval development of a large irregularity shaped region of mixed lucency and intermediate dens ity within the consolidated right lung. 4. Recommend chest CT for further evaluation. CODE T JN [] POS: TPC
[2017-09-24] MEDS ORDERED: Magnesium Sulfate 4 GM in Sodium Chloride 0.9% 250 ML 250 ML IVPB SCH (13:00)
--- NOTE | 2017-09-24 14:44 | PRG ---
DATE OF SERVICE: 09/24/2017 SERVICE: Pulmonary Medicine. INTERVAL HISTORY: The patient is doing fantastic from a respiratory standpoint. He is breathing very comfortably. He has no chest pain, nausea, vomiting, fevers or chills. His lower extremity swelling is starting to improve drastically. PHYSICAL EXAMINATION: VITAL SIGNS: Afebrile, pulse 81, respirations 15, saturation 99% on 2 liters nasal cannula. GENERAL: The patient is awake, alert, in no apparent distress. LUNGS: There is decreased air entry. Crackles are present throughout bilateral lung davey, but more predominantly displayed in the basilar regions. There is a prolonged expiratory phase, but I do appreciate wheezing or rhonchi. HEART: Normal rate and regular. ABDOMEN: Soft, nontender, nondistended. Bowel sounds are positive. MUSCULOSKELETAL: No cyanosis or clubbing. There is now only 1+ pitting in the bilateral lower extremities, which is much improved. GENITOURINARY: No Reyes. NEUROLOGIC: Grossly nonfocal. LABORATORY DATA: Hemoglobin 12.6, platelets 363,000. Potassium 3.0, bicarbonate 39, creatinine 0.82. Urine culture is unremarkable to date. IMAGING: Chest x-ray demonstrates a significant interval improvement in the size of the pleural effusion on the right. It is approaching his baseline chest x-ray. There is still some interstitial fullness throughout. ASSESSMENT: 1. Acute on chronic hypoxic respiratory failure. 2. Acute on chronic systolic and valvular heart failure. 3. Mitral regurgitation, severe. 4. Chronic obstructive pulmonary disease with mild exacerbation, volume mediated. 5. Right-sided pleural effusion, drastically improving (prior thoracentesis at [facility] with Dr. Moreno did not demonstrate anything too terribly alarming other than chronic features). 6. Hypokalemia. PLAN: We will replace the potassium. I will back off on the diuretics ever so slightly as the patient has developed a contraction alkalosis. He is certainly moving in the right direction. I do not think that a CT scan is indicated as the findings that we see in the chest x-ray were previously investigated in the [facility]. I prefer to get him down to euvolemia. At that time, have him return to clinic in the outpatient setting with a chest x-ray. If he returns to baseline, no additional interventions would be warranted. Pulmonary will continue to follow during the hospital stay. Oxygen can be weaned away as tolerated. MTDD
[2017-09-24] MEDS: Furosemide 20 MG TAB PO SCH (14:52)
[2017-09-24] MEDS: Atorvastatin Calcium 40 MG TAB PO SCH (20:29)
[2017-09-24] MEDS: Tamsulosin HCl 0.4 MG CAP PO SCH (20:30)
[2017-09-24] MEDS: Montelukast Sodium 10 mg Tablet PO SCH (20:30)
--- NOTE | 2017-09-24 22:35 | PDOC.PN ---
- Subjective Encounter Start Date: 09/24/17 Encounter Start Time: 18:00 Patient seen and examined for CHF/Resp failure. SOB improving. Some dry cough. No new complaints. Overnight events noted - Had NSVT - Objective Resuscitation Status: Resuscitation Status FULL:Full Resuscitation MAR Reviewed: Yes Vital Signs & Weight: Vital Signs (12 hours) Temp Pulse Resp BP Pulse Ox 09/24/17 19:45 98.1 F 92 18 140/65 94 L 09/24/17 19:18 79 16 93 L 09/24/17 16:00 97.9 F 71 18 136/70 93 L 09/24/17 13:00 82 16 09/24/17 12:07 97.5 F L 77 18 137/62 99 Weight Admit Weight 154 lb 1 oz Weight 138 lb 11.2 oz I&O: 09/23/17 09/24/17 09/25/17 06:59 06:59 06:59 Intake Total 740 240 960 Output Total 2975 1900 1300 Balance -2235 -1660 -340 Result Diagrams: 09/24/17 05:05 09/25/17 05:01 EKG Reviewed by me: Yes (Tele SR) Phys Exam - Physical Examination Constitutional: NAD Respiratory: no wheezing Scat rales with dec AE at Rt base Cardiovascular: RRR, no rub Gastrointestinal: soft, positive bowel sounds Musculoskeletal: edema present (improving) Dx/Plan (1) Acute hypoxemic respiratory failure Code(s): J96.01 - ACUTE RESPIRATORY FAILURE WITH HYPOXIA Status: Acute (2) Acute on chronic systolic heart failure Code(s): I50.23 - ACUTE ON CHRONIC SYSTOLIC (CONGESTIVE) HEART FAILURE Status : Acute Comment: improving, EF 35-40 % (3) COPD exacerbation Code(s): J44.1 - CHRONIC OBSTRUCTIVE PULMONARY DISEASE W (ACUTE) EXACERBATION Status: Acute Comment: improving (4) Electrolyte abnormality Code(s): E87.8 - OTH DISORDERS OF ELECTROLYTE AND FLUID BALANCE, NEC Status: Acute Comment: Hypokalemia/Hypomagnesemia (5) Urine retention Code(s): R33.9 - RETENTION OF URINE, UNSPECIFIED Status: Acute Comment: s/p johnson (6) Pleural effusion Code(s): J90 - PLEURAL EFFUSION, NOT ELSEWHERE CLASSIFIED Status: Acute Comment: due to CHF (7) NSVT (nonsustained ventricular tachycardia) Code(s): I47.2 - VENTRICULAR TACHYCARDIA Status: Acute (8) Pressure ulcer Code(s): L89.90 - PRESSURE ULCER OF UNSPECIFIED SITE, UNSPECIFIED STAGE Status : Chronic Comment: STAGE II PRESSURE ULCER TO R GREAT TOE,MEDIAL ASPECT/STAGE III PRESSURE ULCER TO L MEDIAL BUTTOCK - Present on admission - Plan johnson catheter, continue antibiotics, DVT proph w/SCDs Amiodarone for NSVT -: Cont Nebs/O2/Steroids -: Replace Potassium, Change Lasix to PO -: Cont to monitor -: Home O2 setup Review of Systems - Medications/Allergies Allergies/Adverse Reactions: Allergies Allergy/AdvReac Type Severity Reaction Status Date / Time No Known Drug Allergies Allergy Verified 09/21/17 08:53 Medications: Current Medications Acetaminophen (Tylenol) 650 mg PO Q4H PRN PRN Reason: Headache/Fever or Pain Albuterol Sulfate (Ventolin) 2.5 mg NEB [id number] PRN PRN Reason: Wheezing Albuterol/Ipratropium (Duoneb) 3 ml NEB [id number] [facility] Last Admin: 09/24/17 19:18 Dose: 3 ml Amiodarone HCl (Cordarone) 400 mg PO BID [facility] Last Admin: 09/24/17 20:29 Dose: 400 mg Aspirin (Ecotrin) 81 mg PO DAILY [facility] Last Admin: 09/24/17 08:31 Dose: 81 mg Atorvastatin Calcium (Lipitor) 40 mg PO HS [facility] Last Admin: 09/24/17 20:29 Dose: 40 mg Calcium Carbonate (Tums) 1,000 mg PO Q4H PRN PRN Reason: Heartburn or Indigestion Carvedilol (Coreg) 6.25 mg PO BID-[facility] Last Admin: 09/24/17 17:46 Dose: 6.25 mg Cefdinir (Omnicef) 300 mg PO BID [facility] Stop: 09/25/17 21:01 Last Admin: 09/24/17 20:29 Dose: 300 mg Docusate Sodium (Colace) 100 mg PO BID [facility] Last Admin: 09/24/17 20:29 Dose: 100 mg Doxycycline Hyclate (Vibramycin) 100 mg PO BID [facility] Last Admin: 09/24/17 20:29 Dose: 100 mg Dutasteride (Avodart) 0.5 mg PO DAILY [facility] Last Admin: 09/24/17 08:31 Dose: 0.5 mg Enoxaparin Sodium (Lovenox) 40 mg SC 0900 [facility] Last Admin: 09/23/17 09:28 Dose: 40 mg Famotidine (Pepcid) 20 mg PO BID [facility] Last Admin: 09/24/17 20:29 Dose: 20 mg Furosemide (Lasix) 40 mg PO 0900,1400 [facility] Last Admin: 09/24/17 14:52 Dose: 40 mg Lisinopril (Zestril) 20 mg PO BID [facility] Last Admin: 09/24/17 20:29 Dose: 20 mg Magnesium Chloride (Slow-Mag) 64 mg PO 0600,1800 [facility] Last Admin: 09/24/17 18:41 Dose: 64 mg Magnesium Hydroxide (Milk Of Magnesium) 30 ml PO DAILYPRN PRN PRN Reason: Constipation Montelukast Sodium (Singulair) 10 mg PO HS [facility] Last Admin: 09/24/17 20:30 Dose: 10 mg Ondansetron HCl (Zofran Odt) 4 mg PO Q6H PRN PRN Reason: Nausea/Vomiting Ondansetron HCl (Zofran) 4 mg IVP Q6H PRN PRN Reason: Nausea/Vomiting Potassium Chloride (K-Dur) 40 meq PO TID [facility] Stop: 09/25/17 09:01 Last Admin: 09/24/17 20:30 Dose: 40 meq Prednisone (Prednisone) 40 mg PO QA-[facility] Stop: 09/25/17 08:01 Last Admin: 09/24/17 08:30 Dose: 40 mg Senna (Senokot) 2 tab PO HSPRN PRN PRN Reason: Constipation Sodium Chloride (Flush - Normal Saline) 10 ml IVF Q12HR [facility] Last Admin: 09/24/17 20:30 Dose: 10 ml Sodium Chloride (Flush - Normal Saline) 10 ml IVF PRN PRN PRN Reason: Saline Flush Spironolactone (Aldactone) 25 mg PO QAM-[facility] Last Admin: 09/24/17 08:30 Dose: 25 mg Tamsulosin HCl (Flomax) 0.4 mg PO HS [facility] Last Admin: 09/24/17 20:30 Dose: 0.4 mg
[2017-09-25 05:29] LABS: Albumin 2.6 g/dL (3.4-4.8); BUN (Urea Nitrogen) 34 mg/dL (8.4-25.7); BUN/Creatinine Ratio 36.56; Calc. Creatinine Clearance 54 mL/min (70-130); Calcium 8.6 mg/dL (7.8-10.44); Estimated GFR-MDRD 78; Glucose 152 mg/dL (83-110); Magnesium 1.8 mg/dL (1.6-2.6); Phosphorus 3.2 mg/dL (2.3-4.7)
[2017-09-25 05:37] LABS: Anion Gap 13 mmol/L (10-20); Carbon Dioxide 39 mmol/L (23-31); Chloride 92 mmol/L (98-107); Potassium 4.1 mmol/L (3.5-5.1); Sodium 140 mmol/L (136-145)
[2017-09-25] MEDS: Magnesium Chloride 64 MG TAB PO SCH ×2 (06:00→17:32)
[2017-09-25] MEDS: Carvedilol 6.25 MG TAB PO SCH ×2 (08:32→17:32)
[2017-09-25] MEDS: Spironolactone 25 MG TAB PO SCH (08:32)
[2017-09-25] MEDS: predniSONE 20 MG TAB PO SCH (08:32)
[2017-09-25] MEDS: Lisinopril 20 MG TAB PO SCH ×2 (08:33→20:28)
[2017-09-25] MEDS: Doxycycline 100 MG CAP PO SCH ×2 (08:33→20:29)
[2017-09-25] MEDS: Furosemide 20 MG TAB PO SCH ×2 (08:33→14:55)
[2017-09-25] MEDS: Potassium Chloride 20 MEQ TAB PO SCH (08:33)
[2017-09-25] MEDS: Amiodarone 200 MG TAB PO SCH ×2 (08:33→20:29)
[2017-09-25] MEDS: Aspirin 81 mg Enteric Coated Tablet PO SCH (08:33)
[2017-09-25] MEDS: Dutasteride 0.5 MG CAP PO SCH (08:33)
[2017-09-25] MEDS: Famotidine 20 MG TAB PO SCH ×2 (08:33→20:29)
[2017-09-25] MEDS: Cefdinir 300 MG CAP PO SCH ×2 (08:33→20:29)
[2017-09-25] MEDS: Docusate 100 MG CAP PO SCH ×2 (08:33→20:29)
--- NOTE | 2017-09-25 13:21 | PRG ---
DATE OF SERVICE: 09/25/2017 INPATIENT PROGRESS NOTE SUBJECTIVE: The patient is alert, wound care at bedside addressing his toe. PHYSICAL EXAMINATION: VITAL SIGNS: Stable, afebrile. Urine output 1900 mL of clear. ABDOMEN: Soft, nontender and nondistended. GENITOURINARY: Reyes catheter adequately secured. LABORATORY DATA: Preliminary urine culture negative. Creatinine 0.9. IMPRESSION AND PLAN: 1. Mr. Kerr is an 81-year-old male admitted for respiratory failure, exacerbation of congestive heart failure. 2. History of benign prostatic hypertrophy. 3. Urinary retention on this admission of 1.2 liters. Continue indwelling Reyes catheter now due to significant postvoid residual and aggressive diuretics. The patient's disposition is pending. I do recommend patient be considered for rehabilitation as he is quite frail, elderly, deconditioned and he will be discharged with indwelling Reyes catheter. 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 Given these social concerns, I discussed with hospitalist regarding consideration for rehabilitation. He previously declined home health. Hopefully, patient will agree to rehab placement. BERNARD
--- NOTE | 2017-09-25 14:20 | PRG ---
DATE OF SERVICE: 09/25/2017 SUBJECTIVE: The patient is doing reasonably well. He had no acute complaints. OBJECTIVE: VITAL SIGNS: Temperature 97.4, pulse 85, respirations 18, O2 sat 99% room air, and blood pressure 13 3/64. HEENT: Unremarkable. NECK: No JVD. LUNGS: Coarse breath sounds. CARDIAC: S1 and S2, regular. ABDOMEN: Soft. EXTREMITIES: Edema. LABORATORY DATA: Sodium 140, potassium 4.1, chloride 92, CO2 of 39, BUN 34, creatinine 0.9, and gluc ose 152. ASSESSMENT: 1. Congestive heart failure. 2. Chronic obstructive pulmonary disease with exacerbation. 3. Status post respiratory failure. PLAN: Likely we will go to rehabilitation before ultimately going home. He has been converted over to oral antibiotics and is continuing diuresis with spironolactone.
--- NOTE | 2017-09-25 16:23 | PDOC.CTH ---
<Arabella Stevens - Last Filed: 09/25/17 16:22> Cardiology Progress Note - Subjective Patient seen and examined. No overnight events. No cardiac complaints. He walked to bathroom today. He can breath better today. - Objective Vital Signs Temp Pulse Resp BP Pulse Ox 09/25/17 13:36 85 18 09/25/17 13:25 97.4 F L 77 18 133/64 09/25/17 08:00 96.2 F L 67 18 99 09/25/17 07:56 96.2 F L 67 18 138/63 99 09/25/17 07:10 100 09/25/17 07:05 63 16 Admit Weight 154 lb 1 oz Weight 132 lb 8 oz 09/24/17 09/25/17 09/26/17 06:59 06:59 06:59 Intake Total 240 1200 Output Total 1900 1900 Balance -1660 -700 - Physical Examination General/Neuro: alert & oriented x3 Neck: no JVD present Lungs: other: (very diminished at bases) Heart: RRR Abdomen: soft Extremities: other: (2-3+ pitting edema with discoloration) - Telemetry Telemetry Rhythm: SR 60s - Labs Result Diagrams: 09/24/17 05:05 09/25/17 05:01 Troponin/[facility]MB Troponin I 0.023 ng/mL (< 0.028) 09/20/17 14:53 - Assessment/Plan 1. Acute on Chronic systolic HF - Echo on 09/22/17 showed DF 35-40%, mild dilated LA, severe MR, and mild TR. On BBlokcer, KEVIN, and Spironolactone 25gm daily 2. Hx of NSVT - 20 beats of NSVTs on 09/24/17; on Amiodarone 400mg BID; cont. to monitor 3. COPD exacerbation - stable with 2LNC; d/c with Home O2; managed by box sealing inspector 4. Pleural effusion - 5. Severe MR - stable; cont. to monitor MAR reviewed Review of Systems - Review of Systems Constitutional: reports: no symptoms reported EENTM: reports: no symptoms reported Respiratory: reports: no symptoms reported Cardiac (ROS): reports: no symptoms reported ABD/GI: reports: no symptoms reported : reports: no symptoms reported <Jasmina Méndez - Last Filed: 09/25/17 22:56> Cardiology Progress Note - Objective Vital Signs Temp Pulse Resp BP BP BP Pulse Ox 09/25/17 20:28 121/58 L 09/25/17 20:10 97.4 F L 90 16 121/58 L 98 09/25/17 19:32 98 09/25/17 19:30 68 18 98 09/25/17 17:00 97 F L 66 18 134/63 100 09/25/17 13:36 85 18 09/25/17 13:25 97.4 F L 77 18 133/64 Admit Weight 154 lb 1 oz Weight 132 lb 8 oz 09/24/17 09/25/17 09/26/17 06:59 06:59 06:59 Intake Total 240 1200 Output Total 1900 1900 Balance -1660 -700 - Labs Result Diagrams: 09/24/17 05:05 09/25/17 05:01 Troponin/CKMB Troponin I 0.023 ng/mL (< 0.028) 09/20/17 14:53 - Assessment/Plan Pt. was seen and eval. by me. I agree with the A/P by the SCIENCE INSTRUCTOR. We have discussed the pt. and the plan
[2017-09-25] MEDS: Montelukast Sodium 10 mg Tablet PO SCH (20:29)
[2017-09-25] MEDS: Atorvastatin Calcium 40 MG TAB PO SCH (20:29)
[2017-09-25] MEDS: Tamsulosin HCl 0.4 MG CAP PO SCH (20:29)
--- NOTE | 2017-09-25 23:22 | PDOC.PN ---
- Subjective Encounter Start Date: 09/25/17 Encounter Start Time: 14:00 Patient seen and examined for Resp failure. SOB improving. No new complaints. No overnight events - Objective Resuscitation Status: Resuscitation Status FULL:Full Resuscitation MAR Reviewed: Yes Vital Signs & Weight: Vital Signs (12 hours) Temp Pulse Resp BP BP BP Pulse Ox 09/25/17 20:28 121/58 L 09/25/17 20:10 97.4 F L 90 16 121/58 L 98 09/25/17 19:32 98 09/25/17 19:30 68 18 98 09/25/17 17:00 97 F L 66 18 134/63 100 09/25/17 13:36 85 18 09/25/17 13:25 97.4 F L 77 18 133/64 Weight Admit Weight 154 lb 1 oz Weight 132 lb 8 oz I&O: 09/24/17 09/25/17 09/26/17 06:59 06:59 06:59 Intake Total 240 1200 Output Total 1900 1900 Balance -1660 -700 Result Diagrams: 09/24/17 05:05 09/25/17 05:01 EKG Reviewed by me: Yes (Tele SR) Phys Exam - Physical Examination Constitutional: NAD Respiratory: no wheezing, no rhonchi Dec AE at Rt base Cardiovascular: RRR, no rub Gastrointestinal: soft, non-tender, positive bowel sounds Musculoskeletal: edema present (improving) Neurological: moves all 4 limbs Dx/Plan (1) Acute hypoxemic respiratory failure Code(s): J96.01 - ACUTE RESPIRATORY FAILURE WITH HYPOXIA Status: Acute (2) Acute on chronic systolic heart failure Code(s): I50.23 - ACUTE ON CHRONIC SYSTOLIC (CONGESTIVE) HEART FAILURE Status : Acute Comment: improving, EF 35-40 % (3) COPD exacerbation Code(s): J44.1 - CHRONIC OBSTRUCTIVE PULMONARY DISEASE W (ACUTE) EXACERBATION Status: Acute Comment: improving (4) Electrolyte abnormality Code(s): E87.8 - OTH DISORDERS OF ELECTROLYTE AND FLUID BALANCE, NEC Status: Acute Comment: Hypokalemia/Hypomagnesemia (5) Urine retention Code(s): R33.9 - RETENTION OF URINE, UNSPECIFIED Status: Acute Comment: s/p johnson (6) Pleural effusion Code(s): J90 - PLEURAL EFFUSION, NOT ELSEWHERE CLASSIFIED Status: Acute Comment: due to CHF (7) NSVT (nonsustained ventricular tachycardia) Code(s): I47.2 - VENTRICULAR TACHYCARDIA Status: Acute Comment: on Amiodarone loading (8) Pressure ulcer Code(s): L89.90 - PRESSURE ULCER OF UNSPECIFIED SITE, UNSPECIFIED STAGE Status : Chronic Comment: STAGE II PRESSURE ULCER TO R GREAT TOE,MEDIAL ASPECT/STAGE III PRESSURE ULCER TO L MEDIAL BUTTOCK - Present on admission - Plan DVT proph w/lovenox, DVT proph w/SCDs Consult CM - Rehab vs SNF eval -: AM labs -: Cont diuretics/Steroids/Atbx -: Cont current meds as below -: Voiding trial next week Review of Systems - Review of Systems Constitutional: negative: fever, chills, sweats, weakness, malaise, other Respiratory: Cough, SOB with Excertion. negative: Dry, Shortness of Breath, Hemoptysis, Pleuritic Pain, Sputum, Wheezing Cardiovascular: negative: chest pain, palpitations, orthopnea, paroxysmal nocturnal dyspnea, edema, light headedness, other - Medications/Allergies Allergies/Adverse Reactions: Allergies Allergy/AdvReac Type Severity Reaction Status Date / Time No Known Drug Allergies Allergy Verified 09/21/17 08:53 Medications: Current Medications Acetaminophen (Tylenol) 650 mg PO Q4H PRN PRN Reason: Headache/Fever or Pain Albuterol Sulfate (Ventolin) 2.5 mg NEB [id number] PRN PRN Reason: Wheezing Albuterol/Ipratropium (Duoneb) 3 ml NEB [id number] [facility] Last Admin: 09/25/17 19:30 Dose: 3 ml Amiodarone HCl (Cordarone) 400 mg PO BID [facility] Last Admin: 09/25/17 20:29 Dose: 400 mg Aspirin (Ecotrin) 81 mg PO DAILY [facility] Last Admin: 09/25/17 08:33 Dose: 81 mg Atorvastatin Calcium (Lipitor) 40 mg PO HS [facility] Last Admin: 09/25/17 20:29 Dose: 40 mg Calcium Carbonate (Tums) 1,000 mg PO Q4H PRN PRN Reason: Heartburn or Indigestion Carvedilol (Coreg) 6.25 mg PO BID-[facility] Last Admin: 09/25/17 17:32 Dose: 6.25 mg Docusate Sodium (Colace) 100 mg PO BID [facility] Last Admin: 09/25/17 20:29 Dose: 100 mg Doxycycline Hyclate (Vibramycin) 100 mg PO BID [facility] Last Admin: 09/25/17 20:29 Dose: 100 mg Dutasteride (Avodart) 0.5 mg PO DAILY [facility] Last Admin: 09/25/17 08:33 Dose: 0.5 mg Enoxaparin Sodium (Lovenox) 40 mg SC 0900 [facility] Last Admin: 09/23/17 09:28 Dose: 40 mg Famotidine (Pepcid) 20 mg PO BID [facility] Last Admin: 09/25/17 20:29 Dose: 20 mg Furosemide (Lasix) 40 mg PO 0900,1400 [facility] Last Admin: 09/25/17 14:55 Dose: 40 mg Lisinopril (Zestril) 20 mg PO BID [facility] Last Admin: 09/25/17 20:28 Dose: 20 mg Magnesium Chloride (Slow-Mag) 64 mg PO 0600,1800 [facility] Last Admin: 09/25/17 17:32 Dose: 64 mg Magnesium Hydroxide (Milk Of Magnesium) 30 ml PO DAILYPRN PRN PRN Reason: Constipation Montelukast Sodium (Singulair) 10 mg PO HS [facility] Last Admin: 09/25/17 20:29 Dose: 10 mg Ondansetron HCl (Zofran Odt) 4 mg PO Q6H PRN PRN Reason: Nausea/Vomiting Ondansetron HCl (Zofran) 4 mg IVP Q6H PRN PRN Reason: Nausea/Vomiting Saccharomyces Boulardii (Florastor) 250 mg PO DAILY [facility] Senna (Senokot) 2 tab PO HSPRN PRN PRN Reason: Constipation Sodium Chloride (Flush - Normal Saline) 10 ml IVF Q12HR [facility] Last Admin: 09/25/17 20:30 Dose: 10 ml Sodium Chloride (Flush - Normal Saline) 10 ml IVF PRN PRN PRN Reason: Saline Flush Spironolactone (Aldactone) 25 mg PO QAM-WM [facility] Last Admin: 09/25/17 08:32 Dose: 25 mg Tamsulosin HCl (Flomax) 0.4 mg PO HS [facility] Last Admin: 09/25/17 20:29 Dose: 0.4 mg
[2017-09-26 05:21] LABS: Hemoglobin 11.5 g/dL (14.0-18.0); Platelet Count 343 thou/uL (130-400)
[2017-09-26] MEDS: Magnesium Chloride 64 MG TAB PO SCH ×2 (05:40→17:28)
[2017-09-26 05:50] LABS: Albumin 2.5 g/dL (3.4-4.8); Anion Gap 10 mmol/L (10-20); BUN (Urea Nitrogen) 30 mg/dL (8.4-25.7); BUN/Creatinine Ratio 35.29; Calc. Creatinine Clearance 60 mL/min (70-130); Calcium 8.5 mg/dL (7.8-10.44); Carbon Dioxide 36 mmol/L (23-31); Chloride 93 mmol/L (98-107); Estimated GFR-MDRD 87; Glucose 152 mg/dL (83-110); Magnesium 1.4 mg/dL (1.6-2.6); Phosphorus 2.4 mg/dL (2.3-4.7); Potassium 3.7 mmol/L (3.5-5.1); Sodium 135 mmol/L (136-145)
[2017-09-26] MEDS: Carvedilol 6.25 MG TAB PO SCH ×2 (08:38→17:27)
[2017-09-26] MEDS: Spironolactone 25 MG TAB PO SCH (08:38)
[2017-09-26] MEDS: Amiodarone 200 MG TAB PO SCH ×2 (08:38→21:40)
[2017-09-26] MEDS: Aspirin 81 mg Enteric Coated Tablet PO SCH (08:38)
[2017-09-26] MEDS: Docusate 100 MG CAP PO SCH ×2 (08:38→21:39)
[2017-09-26] MEDS: Lisinopril 20 MG TAB PO SCH ×2 (08:39→21:39)
[2017-09-26] MEDS: Doxycycline 100 MG CAP PO SCH ×2 (08:39→21:37)
[2017-09-26] MEDS: Famotidine 20 MG TAB PO SCH ×2 (08:39→21:39)
[2017-09-26] MEDS: Saccharomyces boulardii 250 MG CAP PO SCH (08:39)
[2017-09-26] MEDS: Dutasteride 0.5 MG CAP PO SCH (08:39)
[2017-09-26] MEDS: Furosemide 20 MG TAB PO SCH ×2 (08:39→14:37)
[2017-09-26] MEDS ORDERED: Magnesium Sulfate 4 GM in Sodium Chloride 0.9% 250 ML 250 ML IVPB SCH (09:15)
[2017-09-26] MEDS ORDERED: Potassium Chloride 20 MEQ TAB PO SCH (10:30)
[2017-09-26] MEDS ORDERED: Enoxaparin Sodium 30 MG/0.3 ML SYRINGE SC SCH (10:30)
--- NOTE | 2017-09-26 13:07 | PRG ---
DATE OF SERVICE: 09/26/2017 SUBJECTIVE: The patient is doing well except for nasal congestion. OBJECTIVE: VITAL SIGNS: Temperature 96.2, pulse 58, respirations 18, O2 sat 96% on 2 liters, blood pressure 119 /53. HEENT: Unremarkable. NECK: No JVD. CHEST: Fairly clear. CARDIAC: S1 and S2 regular. ABDOMEN: Soft. EXTREMITIES: No edema. LABORATORY DATA: Hematocrit 37.2, platelet count 343. Sodium 135, potassium 3.7, chloride 93, CO2 o f 36, BUN 30, creatinine 0.8, glucose 152. ASSESSMENT: 1. Nasal congestion 2. Chronic obstructive pulmonary disease. 3. Congestive heart failure. PLAN: 1. Nasal spray for congestion. 2. Increase activity. 3. Hopefully to rehab tomorrow.
--- NOTE | 2017-09-26 15:00 | PRG ---
DATE OF SERVICE: 09/26/2017 SUBJECTIVE: The patient is resting comfortably, patient appears to be confused regarding his disposition, relates that Dr. Low told him that can go to a outpt rehab 16 miles away from his house; however, Dr. Low has not seen the patient for a few days. I encouraged the patient regarding rehabilitation. Currently, he is being screened for inpatient rehabilitation screening, workup in progress. PHYSICAL EXAMINATION: VITAL SIGNS: Stable, afebrile. I's and O's 1200 mL of urine output, clear yellow. ABDOMEN: Soft, nontender, nondistended. PERTINENT LABORATORY DATA: Urine culture final was negative. Creatinine 0.8. A 24-hour urine output 1200 mL. IMPRESSION AND PLAN: Mr. Dee is an 81-year-old male, who transferred care to my services from [facility], previously followed by Dr. Miller with, 1. Known history of benign prostatic hyperplasia, currently on dual medical therapy. The patient currently admitted due to chronic obstructive pulmonary disease exacerbation and congestive heart failure exacerbation with cardiomyopathy. 2. Urologic consultation obtained due to PVR 1.2 liters. His urine output over the last few days had been trending down, obtaining euvolemic status. Continue Flomax and Avodart 3. History of elevated PSA 4.9 with small right apical nodule. Given his comorbidities, the patient is not a candidate for further prostate cancer screening. The patient in full understanding and desired no further prostate cancer workup. DISPOSITION: I discussed with patient that his disposition is pending for inpatient rehabilitation. He appears confused. He is not safe to be discharged to his private residence given his advanced age, moreover requiring possibly indwelling Reyes catheter due to urinary retention, and home O2. I will attempt to repeat voiding trial tomorrow; however, I informed the patient that if he is unable to urinate efficiently, Reyes catheter will be replaced. If he goes to inpatient rehabilitation, it would be ideal to perform [facility] bladder rehab, which will be the best treatment option for the patient. Informed patient that he can contact case management if he has misinterpretation of what pulmonary physician was advising. Voiding trial tomorrow morning for reassessment. BERNARD
--- NOTE | 2017-09-26 15:27 | PDOC.CTH ---
<Arabella Stevens - Last Filed: 09/26/17 15:28> Cardiology Progress Note - Subjective Patient seen and examined. No overnight events. No cardiac complaints. He walked to bathroom today. He can breath better today. - Objective Vital Signs Temp Pulse Pulse Pulse Resp BP BP 09/26/17 13:34 58 L 16 09/26/17 11:30 96.2 F L 58 L 18 09/26/17 09:42 60 63 120/61 121/59 L 09/26/17 08:00 96.3 F L 60 18 09/26/17 07:42 96.3 F L 60 18 09/26/17 06:36 09/26/17 06:32 59 L 16 09/26/17 05:07 97.9 F 73 20 BP BP Pulse Ox Pulse Ox Pulse Ox 09/26/17 13:34 09/26/17 11:30 119/53 L 96 09/26/17 09:42 97 97 09/26/17 08:00 95 09/26/17 07:42 129/65 95 09/26/17 06:36 100 09/26/17 06:32 09/26/17 05:07 138/63 99 Admit Weight 154 lb 1 oz Weight 135 lb 09/25/17 09/26/17 09/27/17 06:59 06:59 06:59 Intake Total 1200 300 Output Total 1900 1200 Balance -700 -900 - Physical Examination Neck: no JVD present Lungs: other: (diminished at bases) Heart: RRR Abdomen: soft Extremities: other: (2+ pitting BLE edema) - Telemetry Telemetry Rhythm: SB-SR 58-60s - Labs Result Diagrams: 09/26/17 05:13 09/26/17 05:13 Troponin/[facility] Troponin I 0.023 ng/mL (< 0.028) 09/20/17 14:53 - Assessment/Plan 1. Acute on Chronic systolic HF - Echo on 09/22/17 showed DF 35-40%, mild dilated LA, severe MR, and mild TR. Stable with BBlokcer, KEVIN, and Spironolactone 25gm daily 2. Hx of NSVT - 20 beats of NSVTs on 09/24/17; on Amiodarone 400mg BID; cont. to monitor 3. COPD exacerbation - stable with 2LNC; d/c with Home O2; managed by day care provider 4. Pleural effusion - 5. Severe MR - stable; cont. to monitor 6. BPH - Managed by urologist MAR reviewed Review of Systems - Review of Systems Constitutional: reports: no symptoms reported EENTM: reports: no symptoms reported Respiratory: reports: no symptoms reported Cardiac (ROS): reports: no symptoms reported ABD/GI: reports: no symptoms reported : reports: no symptoms reported <Jasmina Méndez - Last Filed: 09/26/17 21:48> Cardiology Progress Note - Objective Vital Signs Temp Pulse Resp BP BP BP Pulse Ox 09/26/17 21:39 99/53 L 09/26/17 19:21 97 09/26/17 19:20 97 09/26/17 16:38 97 F L 64 18 138/89 09/26/17 13:34 58 L 16 09/26/17 11:30 96.2 F L 58 L 18 119/53 L 96 Admit Weight 154 lb 1 oz Weight 135 lb 09/25/17 09/26/17 09/27/17 06:59 06:59 06:59 Intake Total 1200 300 800 Output Total 1900 1200 1250 Balance -700 -900 -450 - Labs Result Diagrams: 09/26/17 05:13 09/26/17 05:13 Troponin/[facility] Troponin I 0.023 ng/mL (< 0.028) 09/20/17 14:53 - Assessment/Plan Pt. seen and eval. by me. I agree with the A/P by the HOE WORKER. We have discussed the plan.
--- NOTE | 2017-09-26 16:28 | PDOC.PN ---
- Subjective Encounter Start Date: 09/26/17 Encounter Start Time: 11:00 Patient seen and examined for CHF and other medical issues. Feels better. SOB on exertion. No new complaints. No overnight events - Objective Resuscitation Status: Resuscitation Status FULL:Full Resuscitation MAR Reviewed: Yes Vital Signs & Weight: Vital Signs (12 hours) Temp Pulse Pulse Pulse Resp BP BP 09/26/17 13:34 58 L 16 09/26/17 11:30 96.2 F L 58 L 18 09/26/17 09:42 60 63 120/61 121/59 L 09/26/17 08:00 96.3 F L 60 18 09/26/17 07:42 96.3 F L 60 18 09/26/17 06:36 09/26/17 06:32 59 L 16 09/26/17 05:07 97.9 F 73 20 BP BP Pulse Ox Pulse Ox Pulse Ox 09/26/17 13:34 09/26/17 11:30 119/53 L 96 09/26/17 09:42 97 97 09/26/17 08:00 95 09/26/17 07:42 129/65 95 09/26/17 06:36 100 09/26/17 06:32 09/26/17 05:07 138/63 99 Weight Admit Weight 154 lb 1 oz Weight 135 lb I&O: 09/25/17 09/26/17 09/27/17 06:59 06:59 06:59 Intake Total 1200 300 Output Total 1900 1200 Balance -700 -900 Result Diagrams: 09/26/17 05:13 09/26/17 05:13 Additional Labs: Laboratory Tests 09/26/17 05:13 Magnesium 1.4 L EKG Reviewed by me: Yes (Tele SR) Phys Exam - Physical Examination Constitutional: NAD Respiratory: no wheezing, no rhonchi Cardiovascular: RRR, no rub Gastrointestinal: soft, non-tender, positive bowel sounds Musculoskeletal: edema present (improving) Neurological: moves all 4 limbs Dx/Plan (1) Acute hypoxemic respiratory failure Code(s): J96.01 - ACUTE RESPIRATORY FAILURE WITH HYPOXIA Status: Acute Comment: improving (2) Acute on chronic systolic heart failure Code(s): I50.23 - ACUTE ON CHRONIC SYSTOLIC (CONGESTIVE) HEART FAILURE Status : Acute Comment: improving, EF 35-40 %, ACC stage C (3) COPD exacerbation Code(s): J44.1 - CHRONIC OBSTRUCTIVE PULMONARY DISEASE W (ACUTE) EXACERBATION Status: Acute Comment: improving (4) Electrolyte abnormality Code(s): E87.8 - OTH DISORDERS OF ELECTROLYTE AND FLUID BALANCE, NEC Status: Acute Comment: Hypokalemia/Hypomagnesemia (5) Urine retention Code(s): R33.9 - RETENTION OF URINE, UNSPECIFIED Status: Acute Comment: s/p johnson (6) Pleural effusion Code(s): J90 - PLEURAL EFFUSION, NOT ELSEWHERE CLASSIFIED Status: Acute Comment: due to CHF (7) NSVT (nonsustained ventricular tachycardia) Code(s): I47.2 - VENTRICULAR TACHYCARDIA Status: Acute Comment: on Amiodarone loading (8) Pressure ulcer Code(s): L89.90 - PRESSURE ULCER OF UNSPECIFIED SITE, UNSPECIFIED STAGE Status : Chronic Comment: STAGE II PRESSURE ULCER TO R GREAT TOE,MEDIAL ASPECT/STAGE III PRESSURE ULCER TO L MEDIAL BUTTOCK - Present on admission - Plan DVT proph w/lovenox, DVT proph w/SCDs Cont Amiodarone for NSVT, Cont diuretics -: 4 gm Magnessium sulfate IVPB x1 -: AM labs, Cont current meds as below -: Cont to monitor -: Voiding trial in AM Review of Systems - Review of Systems Respiratory: Cough, SOB with Excertion. negative: Dry, Shortness of Breath, Hemoptysis, Pleuritic Pain, Sputum, Wheezing Cardiovascular: negative: chest pain, palpitations, orthopnea, paroxysmal nocturnal dyspnea, edema, light headedness, other Gastrointestinal: negative: Nausea, Vomiting, Abdominal Pain, Diarrhea, Constipation, Melena, Hematochezia, Other - Medications/Allergies Allergies/Adverse Reactions: Allergies Allergy/AdvReac Type Severity Reaction Status Date / Time No Known Drug Allergies Allergy Verified 09/21/17 08:53 Medications: Current Medications Acetaminophen (Tylenol) 650 mg PO Q4H PRN PRN Reason: Headache/Fever or Pain Albuterol Sulfate (Ventolin) 2.5 mg NEB [id number] PRN PRN Reason: Wheezing Albuterol/Ipratropium (Duoneb) 3 ml NEB [id number] [facility] Last Admin: 09/26/17 13:34 Dose: 3 ml Amiodarone HCl (Cordarone) 400 mg PO BID [facility] Last Admin: 09/26/17 08:38 Dose: 400 mg Aspirin (Ecotrin) 81 mg PO DAILY [facility] Last Admin: 09/26/17 08:38 Dose: 81 mg Atorvastatin Calcium (Lipitor) 40 mg PO HS [facility] Last Admin: 09/25/17 20:29 Dose: 40 mg Calcium Carbonate (Tums) 1,000 mg PO Q4H PRN PRN Reason: Heartburn or Indigestion Carvedilol (Coreg) 6.25 mg PO BID-[facility] Last Admin: 09/26/17 08:38 Dose: 6.25 mg Docusate Sodium (Colace) 100 mg PO BID [facility] Last Admin: 09/26/17 08:38 Dose: 100 mg Doxycycline Hyclate (Vibramycin) 100 mg PO BID [facility] Last Admin: 09/26/17 08:39 Dose: 100 mg Dutasteride (Avodart) 0.5 mg PO DAILY [facility] Last Admin: 09/26/17 08:39 Dose: 0.5 mg Enoxaparin Sodium (Lovenox) 30 mg SC 0900 [facility] Famotidine (Pepcid) 20 mg PO BID [facility] Last Admin: 09/26/17 08:39 Dose: 20 mg Fluticasone Propionate (Flonase Nasal [place]) 2 gm NASAL BID [facility] Furosemide (Lasix) 40 mg PO 0900,1400 [facility] Last Admin: 09/26/17 14:37 Dose: 40 mg Lisinopril (Zestril) 20 mg PO BID [facility] Last Admin: 09/26/17 08:39 Dose: 20 mg Magnesium Chloride (Slow-Mag) 64 mg PO 0600,1800 [facility] Last Admin: 09/26/17 05:40 Dose: 64 mg Magnesium Hydroxide (Milk Of Magnesium) 30 ml PO DAILYPRN PRN PRN Reason: Constipation Montelukast Sodium (Singulair) 10 mg PO HS [facility] Last Admin: 09/25/17 20:29 Dose: 10 mg Ondansetron HCl (Zofran Odt) 4 mg PO Q6H PRN PRN Reason: Nausea/Vomiting Ondansetron HCl (Zofran) 4 mg IVP Q6H PRN PRN Reason: Nausea/Vomiting Saccharomyces Boulardii (Florastor) 250 mg PO DAILY [facility] Last Admin: 09/26/17 08:39 Dose: 250 mg Senna (Senokot) 2 tab PO HSPRN PRN PRN Reason: Constipation Sodium Chloride (Flush - Normal Saline) 10 ml IVF Q12HR [facility] Last Admin: 09/26/17 08:39 Dose: 10 ml Sodium Chloride (Flush - Normal Saline) 10 ml IVF PRN PRN PRN Reason: Saline Flush Spironolactone (Aldactone) 25 mg PO QAM-WM [facility] Last Admin: 09/26/17 08:38 Dose: 25 mg Tamsulosin HCl (Flomax) 0.4 mg PO HS [facility] Last Admin: 09/25/17 20:29 Dose: 0.4 mg
[2017-09-26] MEDS: Atorvastatin Calcium 40 MG TAB PO SCH (21:39)
[2017-09-26] MEDS: Montelukast Sodium 10 mg Tablet PO SCH (21:39)
[2017-09-26] MEDS: Tamsulosin HCl 0.4 MG CAP PO SCH (21:39)
[2017-09-26] MEDS: Fluticasone Propionate Nasal Spray 16 gm Bottle NASAL SCH (21:40)
[2017-09-27 05:30] LABS: Anion Gap 11 mmol/L (10-20); BUN (Urea Nitrogen) 33 mg/dL (8.4-25.7); Calc. Creatinine Clearance 56 mL/min (70-130); Calcium 8.6 mg/dL (7.8-10.44); Carbon Dioxide 35 mmol/L (23-31); Chloride 91 mmol/L (98-107); Estimated GFR-MDRD 80; Glucose 91 mg/dL (83-110); Potassium 3.8 mmol/L (3.5-5.1); Sodium 133 mmol/L (136-145)
[2017-09-27] MEDS: Magnesium Chloride 64 MG TAB PO SCH ×2 (06:03→17:19)
[2017-09-27] MEDS: Carvedilol 6.25 MG TAB PO SCH ×2 (08:18→17:19)
[2017-09-27] MEDS: Lisinopril 20 MG TAB PO SCH ×2 (08:19→21:02)
[2017-09-27] MEDS: Spironolactone 25 MG TAB PO SCH (08:19)
[2017-09-27] MEDS: Doxycycline 100 MG CAP PO SCH ×2 (08:19→21:02)
[2017-09-27] MEDS: Amiodarone 200 MG TAB PO SCH ×2 (08:19→21:03)
[2017-09-27] MEDS: Dutasteride 0.5 MG CAP PO SCH (08:19)
[2017-09-27] MEDS: Docusate 100 MG CAP PO SCH ×2 (08:19→21:02)
[2017-09-27] MEDS: Aspirin 81 mg Enteric Coated Tablet PO SCH (08:19)
[2017-09-27] MEDS: Furosemide 20 MG TAB PO SCH ×2 (08:19→13:42)
[2017-09-27] MEDS: Famotidine 20 MG TAB PO SCH ×2 (08:19→21:03)
[2017-09-27] MEDS: Fluticasone Propionate Nasal Spray 16 gm Bottle NASAL SCH ×2 (08:20→21:12)
[2017-09-27] MEDS: Enoxaparin Sodium 30 MG/0.3 ML SYRINGE SC SCH (08:20)
[2017-09-27] MEDS: Saccharomyces boulardii 250 MG CAP PO SCH (08:20)
--- NOTE | 2017-09-27 11:41 | PRG ---
DATE OF SERVICE: 09/27/2017 SUBJECTIVE: The patient is resting comfortably, Reyes catheter was removed this morning at 4:30 a.m. He has not yet voided. Denies sensation of void. Bladder scan has been checked, 80 mL, 120/150 mL on bladder scan. VITAL SIGNS: Vital signs are stable. ABDOMEN: Soft, nontender, nondistended. Creatinine 0.9. Previous 24-hour urine output is 1760, urine culture negative. ASSESSMENT AND PLAN: 1. Mr. Kerr is an 81-year-old male, deconditioned status. 2. Admitted for congestive heart failure, chronic obstructive pulmonary disease, respiratory failure , improving/resolvin. History of benign prostatic hypertrophy on dual medical therapy. 4. Urologic consultation obtained due to 1.2 liters of PVR. 5. History of elevated PSA, small apical nodule on observation, given his clinical comorbidities. Voiding trial was initiated this morning. However, he does not have a significant amount of urine to assess for recurrent urinary retention. I informed patient regarding prompt time voiding every 6 ho urs. Nursing staff will check PVR bladder scan and he is to be straight cathed if PVRs greater than 300 mL. We will monitor his voiding status in the next 24 hours. [facility]. There is a high likelihood that the patient will need to continue with CICs in a rehab facility. Continue dual medical therapy for his BPH.
--- NOTE | 2017-09-27 14:01 | PRG ---
DATE OF SERVICE: 09/27/2017 SERVICE: Pulmonary Medicine. INTERVAL HISTORY: The patient is doing fine from a respiratory standpoint. He is on room air. Kam es any chest pain, nausea, vomiting, fevers, or chills. Otherwise, there has been no interval change to his condition. He is still looking forward to getting out of here. PHYSICAL EXAMINATION: VITAL SIGNS: Afebrile, pulse 58, blood pressure 129/59, respirations 18, and saturation 100% on room air. GENERAL: The patient is awake, alert, in no apparent distress. LUNGS: Reduced air entry with prolonged expiratory phase. Dependent crackles are present. No wheez ing or rhonchi appreciated. HEART: Normal rate, regular. ABDOMEN: Soft, nontender, nondistended. Bowel sounds are positive. MUSCULOSKELETAL: No cyanosis or clubbing. There is 1+ pitting in the bilateral lower extremities. NEUROLOGIC: Grossly nonfocal. LABORATORY DATA: Basic metabolic profile is essentially unremarkable/stable with bicarbonate of 35, creatinine 0.91, and BUN is roughly stable at 33. Urine culture is unremarkable. ASSESSMENT: 1. Acute hypoxic respiratory failure, resolved. 2. Acute on chronic systolic and valvular heart failure. 3. Mitral regurgitation, severe. 4. Chronic obstructive pulmonary disease with mild exacerbation, volume mediated. 5. Right-sided pleural effusion, previously investigated with thoracentesis. 6. Hypokalemia, resolved. DISCUSSION AND PLAN: I have the patient follow with me in clinic in the outpatient setting. We will repeat a chest x-ray to make certain the image returns to baseline. If it does not, we will get a C T scan. He has no further requirements for inpatient pulmonary critical care opinion. As such, I wi ll sign off. Please call with additional questions or concerns moving forward.
[2017-09-27] MEDS: Montelukast Sodium 10 mg Tablet PO SCH (21:02)
[2017-09-27] MEDS: Tamsulosin HCl 0.4 MG CAP PO SCH (21:02)
[2017-09-27] MEDS: Atorvastatin Calcium 40 MG TAB PO SCH (21:03)
--- NOTE | 2017-09-27 23:43 | PDOC.PN ---
- Subjective Encounter Start Date: 09/27/17 Encounter Start Time: 13:30 Patient seen and examined for CHF flare/Urinary retention. No new complaints. SOB improving. No overnight events - Objective Resuscitation Status: Resuscitation Status FULL:Full Resuscitation MAR Reviewed: Yes Vital Signs & Weight: Vital Signs (12 hours) Temp Pulse Pulse Pulse Resp BP BP 09/27/17 23:39 09/27/17 20:00 97.5 F L 65 18 09/27/17 18:50 09/27/17 18:49 09/27/17 17:01 68 61 101/55 L 142/65 H 09/27/17 15:46 97.2 F L 64 20 09/27/17 13:29 57 L 18 BP BP Pulse Ox 09/27/17 23:39 93 L 09/27/17 20:00 122/59 L 09/27/17 18:50 95 09/27/17 18:49 93 L 09/27/17 17:01 09/27/17 15:46 113/55 L 100 09/27/17 13:29 Weight Admit Weight 154 lb 1 oz Weight 130 lb I&O: 09/26/17 09/27/17 09/28/17 06:59 06:59 06:59 Intake Total 300 1280 900 Output Total 1200 1760 520 Balance -900 -480 380 Result Diagrams: 09/26/17 05:13 09/27/17 04:51 Phys Exam - Physical Examination Constitutional: NAD Respiratory: no wheezing, no rhonchi Dec AE at bases Cardiovascular: RRR, no rub Gastrointestinal: soft, non-tender, positive bowel sounds Musculoskeletal: edema present Neurological: moves all 4 limbs Dx/Plan (1) Acute hypoxemic respiratory failure Code(s): J96.01 - ACUTE RESPIRATORY FAILURE WITH HYPOXIA Status: Acute Comment: improving (2) Acute on chronic systolic heart failure Code(s): I50.23 - ACUTE ON CHRONIC SYSTOLIC (CONGESTIVE) HEART FAILURE Status : Acute Comment: improving, EF 35-40 %, ACC stage C (3) COPD exacerbation Code(s): J44.1 - CHRONIC OBSTRUCTIVE PULMONARY DISEASE W (ACUTE) EXACERBATION Status: Acute Comment: improving (4) Electrolyte abnormality Code(s): E87.8 - OTH DISORDERS OF ELECTROLYTE AND FLUID BALANCE, NEC Status: Acute Comment: Hypokalemia/Hypomagnesemia (5) Urine retention Code(s): R33.9 - RETENTION OF URINE, UNSPECIFIED Status: Acute Comment: Eric dceemani 09/27. (6) Pleural effusion Code(s): J90 - PLEURAL EFFUSION, NOT ELSEWHERE CLASSIFIED Status: Acute Comment: due to CHF (7) NSVT (nonsustained ventricular tachycardia) Code(s): I47.2 - VENTRICULAR TACHYCARDIA Status: Acute Comment: on Amiodarone loading (8) Pressure ulcer Code(s): L89.90 - PRESSURE ULCER OF UNSPECIFIED SITE, UNSPECIFIED STAGE Status : Chronic Comment: STAGE II PRESSURE ULCER TO R GREAT TOE,MEDIAL ASPECT/STAGE III PRESSURE ULCER TO L MEDIAL BUTTOCK - Present on admission - Plan continue antibiotics, PT/OT, respiratory therapy, DVT proph w/SCDs Cont Lasix - dose reduced today -: Cont Amiodarine - dose reduced today -: Monitor overnight per Dr Kwon - Monitor post void residual -: AM labs -: Cont current meds as below Review of Systems - Review of Systems Constitutional: negative: fever, chills, sweats, weakness, malaise, other Gastrointestinal: negative: Nausea, Vomiting, Abdominal Pain, Diarrhea, Constipation, Melena, Hematochezia, Other - Medications/Allergies Allergies/Adverse Reactions: Allergies Allergy/AdvReac Type Severity Reaction Status Date / Time No Known Drug Allergies Allergy Verified 09/21/17 08:53 Medications: Current Medications Acetaminophen (Tylenol) 650 mg PO Q4H PRN PRN Reason: Headache/Fever or Pain Albuterol Sulfate (Ventolin) 2.5 mg NEB [id number] PRN PRN Reason: Wheezing Albuterol/Ipratropium (Duoneb) 3 ml NEB [id number] [facility] Last Admin: 09/27/17 23:39 Dose: 3 ml Amiodarone HCl (Cordarone) 200 mg PO BID [facility] Last Admin: 09/27/17 21:03 Dose: 200 mg Aspirin (Ecotrin) 81 mg PO DAILY [facility] Last Admin: 09/27/17 08:19 Dose: 81 mg Atorvastatin Calcium (Lipitor) 40 mg PO HS [facility] Last Admin: 09/27/17 21:03 Dose: 40 mg Calcium Carbonate (Tums) 1,000 mg PO Q4H PRN PRN Reason: Heartburn or Indigestion Carvedilol (Coreg) 6.25 mg PO BID-[facility] Last Admin: 09/27/17 17:19 Dose: 6.25 mg Docusate Sodium (Colace) 100 mg PO BID [facility] Last Admin: 09/27/17 21:02 Dose: 100 mg Doxycycline Hyclate (Vibramycin) 100 mg PO BID [facility] Last Admin: 09/27/17 21:02 Dose: 100 mg Dutasteride (Avodart) 0.5 mg PO DAILY [facility] Last Admin: 09/27/17 08:19 Dose: 0.5 mg Enoxaparin Sodium (Lovenox) 30 mg SC 0900 [facility] Last Admin: 09/27/17 08:20 Dose: 30 mg Famotidine (Pepcid) 20 mg PO BID [facility] Last Admin: 09/27/17 21:03 Dose: 20 mg Fluticasone Propionate (Flonase Nasal [place]) 2 gm NASAL BID [facility] Last Admin: 09/27/17 21:12 Dose: 1 spr Furosemide (Lasix) 40 mg PO DAILY [facility] Lisinopril (Zestril) 20 mg PO BID [facility] Last Admin: 09/27/17 21:02 Dose: 20 mg Magnesium Chloride (Slow-Mag) 64 mg PO 0600,1800 [facility] Last Admin: 09/27/17 17:19 Dose: 64 mg Magnesium Hydroxide (Milk Of Magnesium) 30 ml PO DAILYPRN PRN PRN Reason: Constipation Montelukast Sodium (Singulair) 10 mg PO HS [facility] Last Admin: 09/27/17 21:02 Dose: 10 mg Ondansetron HCl (Zofran Odt) 4 mg PO Q6H PRN PRN Reason: Nausea/Vomiting Ondansetron HCl (Zofran) 4 mg IVP Q6H PRN PRN Reason: Nausea/Vomiting Saccharomyces Boulardii (Florastor) 250 mg PO DAILY [facility] Last Admin: 09/27/17 08:20 Dose: 250 mg Senna (Senokot) 2 tab PO HSPRN PRN PRN Reason: Constipation Sodium Chloride (Flush - Normal Saline) 10 ml IVF Q12HR [facility] Last Admin: 09/27/17 21:13 Dose: 10 ml Sodium Chloride (Flush - Normal Saline) 10 ml IVF PRN PRN PRN Reason: Saline Flush Spironolactone (Aldactone) 25 mg PO QAM-WM [facility] Last Admin: 09/27/17 08:19 Dose: 25 mg Tamsulosin HCl (Flomax) 0.4 mg PO HS [facility] Last Admin: 09/27/17 21:02 Dose: 0.4 mg
[2017-09-28 05:21] LABS: Hemoglobin 12.1 g/dL (14.0-18.0); Platelet Count 367 thou/uL (130-400)
[2017-09-28 05:30] LABS: BUN (Urea Nitrogen) 43 mg/dL (8.4-25.7); Calc. Creatinine Clearance 43 mL/min (70-130); Calcium 8.3 mg/dL (7.8-10.44); Estimated GFR-MDRD 62; Glucose 100 mg/dL (83-110); Magnesium 1.7 mg/dL (1.6-2.6)
[2017-09-28 05:41] LABS: Anion Gap 14 mmol/L (10-20); Carbon Dioxide 33 mmol/L (23-31); Chloride 89 mmol/L (98-107); Sodium 133 mmol/L (136-145)
[2017-09-28] MEDS: Magnesium Chloride 64 MG TAB PO SCH ×2 (05:59→17:01)
[2017-09-28] MEDS ORDERED: Potassium Chloride 20 MEQ TAB PO SCH (08:30)
[2017-09-28] MEDS ORDERED: Furosemide 20 MG TAB PO SCH (09:00)
--- NOTE | 2017-09-28 09:22 | PRG ---
DATE OF SERVICE: 09/28/2017 INPATIENT PROGRESS NOTE SUBJECTIVE: The patient without complaints. Vital signs are stable. I's and O's and bladder scan r esults reviewed. The patient has been voiding spontaneously, had required catheterization once due t o PVR of 327. Subsequent bladder scan after patient voided 150 mL has been less than 300 mL; therefo re, currently on observation. IMPRESSION AND PLAN: 1. Mr. Kerr is an 81-year-old male with history of BPH on dual medical therapy. 2. Currently admitted for cardiomyopathy, chronic obstructive pulmonary disease exacerbation. 3. Initial urologic consultation obtained due to 1.2 liters of PVR. The patient currently on voidin g trial and bladder rehab. I recommend patient continue to be scanned every 6 hours, CICs advised if PVR greater than 300 mL. His voiding status seems to be improved; however, will need to be monitore d. The patient can be discharged to rehab with ongoing bladder rehab and recommendations of bladder training with PVR bladder scan every 6 hours CIC p.r.n. for PVR greater than 300 mL. He has a follow up with me 10/05/2017 at 1:30 p.m. May discharge to rehab when medically stable.
[2017-09-28] MEDS: Spironolactone 25 MG TAB PO SCH (09:31)
[2017-09-28] MEDS: Carvedilol 6.25 MG TAB PO SCH ×2 (09:31→16:58)
[2017-09-28] MEDS: Amiodarone 200 MG TAB PO SCH ×2 (09:31→21:22)
[2017-09-28] MEDS: Famotidine 20 MG TAB PO SCH (09:32)
[2017-09-28] MEDS: Aspirin 81 mg Enteric Coated Tablet PO SCH (09:32)
[2017-09-28] MEDS: Fluticasone Propionate Nasal Spray 16 gm Bottle NASAL SCH ×2 (09:32→21:22)
[2017-09-28] MEDS: Dutasteride 0.5 MG CAP PO SCH (09:32)
[2017-09-28] MEDS: Doxycycline 100 MG CAP PO SCH ×2 (09:32→21:22)
[2017-09-28] MEDS: Enoxaparin Sodium 30 MG/0.3 ML SYRINGE SC SCH (09:32)
[2017-09-28] MEDS: Docusate 100 MG CAP PO SCH ×2 (09:32→21:23)
[2017-09-28] MEDS: Saccharomyces boulardii 250 MG CAP PO SCH (09:33)
[2017-09-28] MEDS: Lisinopril 20 MG TAB PO SCH ×2 (09:33→21:22)
[2017-09-28 13:11] VITALS: BMI 18.2
--- NOTE | 2017-09-28 14:14 | PDOC.PN ---
- Subjective Encounter Start Date: 09/28/17 Encounter Start Time: 14:12 Subjective: feels better.still gets winded with exertion.no SOB at rest -: no chest pain.denies any bladder fullness,urinary hesitancy -: labs reviewed - Objective Resuscitation Status: Resuscitation Status FULL:Full Resuscitation MAR Reviewed: Yes Vital Signs & Weight: Vital Signs (12 hours) Temp Pulse Resp BP Pulse Ox 09/28/17 14:08 57 L 16 96 09/28/17 11:36 97.4 F L 54 L 22 H 92 L 09/28/17 07:56 97.6 F 60 18 119/58 L 100 09/28/17 07:15 59 L 16 100 09/28/17 04:00 97.2 F L 60 15 107/55 L 100 Weight Admit Weight 154 lb 1 oz Weight 131 lb I&O: 09/27/17 09/28/17 09/29/17 06:59 06:59 06:59 Intake Total 1280 1380 Output Total 1760 920 Balance -480 460 Result Diagrams: 09/28/17 05:01 09/28/17 05:01 Additional Labs: Microbiology 09/23/17 14:04 Urine johnson catheter Urine Culture - Final NO GROWTH AT 48 HOURS Phys Exam - Physical Examination Constitutional: NAD HEENT: PERRLA, moist MMs, sclera anicteric, oral pharynx no lesions Neck: no nodes, no JVD, supple, full ROM Respiratory: no wheezing, no rales, no rhonchi, clear to auscultation bilateral Cardiovascular: RRR, no significant murmur, no rub Gastrointestinal: soft, non-tender, no distention, positive bowel sounds Musculoskeletal: no edema, pulses present Neurological: non-focal, normal sensation, moves all 4 limbs Psychiatric: normal affect, A&O x 3 Skin: no rash Dx/Plan (1) Acute hypoxemic respiratory failure Code(s): J96.01 - ACUTE RESPIRATORY FAILURE WITH HYPOXIA Status: Acute Comment: improving (2) Acute on chronic systolic heart failure Code(s): I50.23 - ACUTE ON CHRONIC SYSTOLIC (CONGESTIVE) HEART FAILURE Status : Acute Comment: improving, EF 35-40 %, ACC stage C (3) COPD exacerbation Code(s): J44.1 - CHRONIC OBSTRUCTIVE PULMONARY DISEASE W (ACUTE) EXACERBATION Status: Acute Comment: improving (4) Electrolyte abnormality Code(s): E87.8 - OTH DISORDERS OF ELECTROLYTE AND FLUID BALANCE, NEC Status: Acute Comment: Hypokalemia/Hypomagnesemia (5) NSVT (nonsustained ventricular tachycardia) Code(s): I47.2 - VENTRICULAR TACHYCARDIA Status: Acute Comment: on Amiodarone BID (6) Pleural effusion Code(s): J90 - PLEURAL EFFUSION, NOT ELSEWHERE CLASSIFIED Status: Acute Comment: due to CHF. (7) Urine retention Code(s): R33.9 - RETENTION OF URINE, UNSPECIFIED Status: Acute Comment: Johnson dced 09/27. (8) HTN (hypertension) Code(s): I10 - ESSENTIAL (PRIMARY) HYPERTENSION Status: Chronic - Plan continue antibiotics, PT/OT, respiratory therapy, incentive spirometry, out of bed/ambulate, DVT proph w/SCDs clinically improving.cont .meds as below.diuretics,nebs,cardio-prudent -: Urine output adequate.cont monitoring w q6hr bladder scan -: cont Avodart and flomax.appreciate urology input -: discussed case w Dr. Low regarding CXR finding-repeat CXR in 2-3 weeks -: replace and recheck potassium. * .may need O2 on DC.do home eval. * OK to Dc when accepted by [facility] and cleared by cardiology. * am labs
[2017-09-28] MEDS: Tamsulosin HCl 0.4 MG CAP PO SCH (21:22)
[2017-09-28] MEDS: Atorvastatin Calcium 40 MG TAB PO SCH (21:23)
[2017-09-28] MEDS: Montelukast Sodium 10 mg Tablet PO SCH (21:23)
[2017-09-29 05:37] LABS: Anion Gap 10 mmol/L (10-20); BUN (Urea Nitrogen) 47 mg/dL (8.4-25.7); Calc. Creatinine Clearance 40 mL/min (70-130); Calcium 8.3 mg/dL (7.8-10.44); Carbon Dioxide 34 mmol/L (23-31); Chloride 89 mmol/L (98-107); Estimated GFR-MDRD 57; Glucose 127 mg/dL (83-110); Sodium 130 mmol/L (136-145)
[2017-09-29 05:49] LABS: Potassium 2.9 mmol/L (3.5-5.1)
[2017-09-29] MEDS: Magnesium Chloride 64 MG TAB PO SCH (05:52)
[2017-09-29] MEDS ORDERED: Potassium Chloride 20 MEQ TAB PO SCH ×2 (06:15→08:00)
[2017-09-29] MEDS ORDERED: Furosemide 20 MG TAB PO SCH (08:26)
[2017-09-29] MEDS: Enoxaparin Sodium 30 MG/0.3 ML SYRINGE SC SCH (08:57)
[2017-09-29] MEDS: Saccharomyces boulardii 250 MG CAP PO SCH (08:57)
[2017-09-29] MEDS: Doxycycline 100 MG CAP PO SCH (08:58)
[2017-09-29] MEDS: Spironolactone 25 MG TAB PO SCH (08:58)
[2017-09-29] MEDS: Docusate 100 MG CAP PO SCH (08:58)
[2017-09-29] MEDS: Dutasteride 0.5 MG CAP PO SCH (08:58)
[2017-09-29] MEDS: Potassium Chloride 20 MEQ TAB PO SCH ×3 (08:58→14:30)
[2017-09-29] MEDS: Amiodarone 200 MG TAB PO SCH (08:59)
[2017-09-29] MEDS: Aspirin 81 mg Enteric Coated Tablet PO SCH (08:59)
[2017-09-29] MEDS: Carvedilol 6.25 MG TAB PO SCH (08:59)
[2017-09-29] MEDS ORDERED: Famotidine 20 MG TAB PO SCH (09:00)
[2017-09-29] MEDS ORDERED: Lisinopril 20 MG TAB PO SCH (09:00)
[2017-09-29] MEDS: Fluticasone Propionate Nasal Spray 16 gm Bottle NASAL SCH (09:00)
[2017-09-29 11:42] VITALS: BP 127/76; TEMP 97.7
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
== END 2017-09-29 15:00 | DRG 291 ==
LOC: ERS 12:34 → 2NO 14:56
PROVIDERS: ADMIT Internal Medicine; ATTEND Internal Medicine
DX: I11.0 Hypertensive heart disease with heart failure (principal); L89.323 Pressure ulcer of left buttock, stage 3; J96.21 Acute and chronic respiratory failure with hypoxia; J18.9 Pneumonia, unspecified organism; J44.1 Chronic obstructive pulmonary disease with (acute) exacerbation; E44.0 Moderate protein-calorie malnutrition; E87.3 Alkalosis; I47.2 Ventricular tachycardia; I50.21 Acute systolic (congestive) heart failure; Z68.21 Body mass index [BMI] 21.0-21.9, adult; N40.0 Benign prostatic hyperplasia without lower urinary tract symptoms; Z99.81 Dependence on supplemental oxygen; I25.10 Atherosclerotic heart disease of native coronary artery without angina pectoris; E78.5 Hyperlipidemia, unspecified; Z87.891 Personal history of nicotine dependence; E87.6 Hypokalemia; E83.42 Hypomagnesemia; I34.0 Nonrheumatic mitral (valve) insufficiency; R33.9 Retention of urine, unspecified; Z79.899 Other long term (current) drug therapy; Z79.82 Long term (current) use of aspirin; Z79.2 Long term (current) use of antibiotics
CPT/HCPCS: 36415; 36416; 71046; 80048; 80053; 80069; 81001; 83735; 84100; 85014; 85018; 85025; 85049; 87086; 93306; 93798; 94640; A4216; G8978-GP-CM; G8979-GP-CM; G8980-GP-CM; G8987-GO-CK; G8988-GO-CI; J0696; J1650; J1940; J3475; J7050; J7506; J7620

== ENCOUNTER 2017-10-26 09:42 | Outpatient (CLI) | payer MEDICARE, OTHER ==
--- NOTE | 2017-10-26 11:26 | RAD ---
CHEST TWO VIEWS: HISTORY: Dyspnea. COMPARISON: Radiograph from 09/24/2017. FINDINGS: There is very minimal improved aeration of the right lower lobe. Chronic right pleural effusion is s imilar. There appears to be some developing scarring with volume loss in the right hemithorax with r elative hyperinflation of the left hemithorax. There is a rightward shift in the mediastinum. No pneumothorax. IMPRESSION: 1. Developing scarring and volume loss in the right hemithorax with layering complicated fluid with right atelectasis. An underlying mass cannot be totally excluded. 2. Relative hyperinflation of the left lung, compensatory. POS: [facility]
== END 2017-10-26 09:43 | disposition home or self-care (01) ==
LOC: RAD 09:42
PROVIDERS: ATTEND Internal Medicine
DX: R06.00 Dyspnea, unspecified (principal); J98.4 Other disorders of lung; J98.11 Atelectasis
CPT/HCPCS: 71046

== ENCOUNTER 2017-12-30 12:54 | Day surgery (SDC) | payer MEDICARE, OTHER ==
[2017-12-30 12:10] VITALS: BMI 28.9
[2017-12-30 13:34] LABS: PTT 24.5 SEC (22.9-36.1); Prothrombin Time 13.6 SEC (12.0-14.7)
[2017-12-30 14:48] VITALS: BP 124/61; TEMP 96.6
--- NOTE | 2017-12-30 16:20 | ULT ---
ULTRASOUND GUIDED PARACENTESIS: 12/30/17 INDICATION: Ascites. TECHNIQUE: Informed consent was obtained. Preprocedure ultrasound demonstrates the largest collection of fluid w ithin the right lower quadrant. Site was prepped and draped in the usual sterile fashion. Buffered 1% lidocaine was administered overlying the subcutaneous tissues. Under ultrasound guidance, a 5 [place] Yueh catheter was guided down into the collection in the right lower quadrant. There is aspiration o f 20 mL of fluid in a syringe for the diagnostic portion of the paracentesis. Tubing was then applied to the Yueh catheter and placed on a vacuum bottle. One liter of fluid was removed. Patient tolerate d the paracentesis without difficulty. IMPRESSION: Successful ultrasound guided paracentesis with removal of one liter of normal appearing peritoneal fl uid. 20 mL of the solution was sent to pathology for diagnostic analysis. POS: [facility]
== END 2017-12-30 14:40 | disposition home or self-care (01) ==
LOC: ULT 12:54
PROVIDERS: ATTEND Internal Medicine Medical Oncology
PROC: 0W9G3ZX Drainage of Peritoneal Cavity, Percutaneous Approach, Diagnostic (ICD-10-PCS; principal; 2017-12-30)
DX: C16.9 Malignant neoplasm of stomach, unspecified (principal); R18.0 Malignant ascites; J44.9 Chronic obstructive pulmonary disease, unspecified; I10 Essential (primary) hypertension; F17.210 Nicotine dependence, cigarettes, uncomplicated; I25.10 Atherosclerotic heart disease of native coronary artery without angina pectoris; I11.0 Hypertensive heart disease with heart failure; I50.9 Heart failure, unspecified; I43 Cardiomyopathy in diseases classified elsewhere; Z79.82 Long term (current) use of aspirin; Z79.899 Other long term (current) drug therapy
CPT/HCPCS: 36415; 49083; 83615; 84157; 85610; 85730

== ENCOUNTER 2018-01-01 12:50 | Inpatient (IN) | payer MEDICARE, OTHER ==
[2018-01-01 14:15] LABS: Hemoglobin 15.1 g/dL (14.0-18.0); Mean Corpuscular HGB CONC 33.8 g/dL (32.0-36.0); Mean Corpuscular Volume 94.8 fL (78.0-98.0); Mean Platelet Volume 7.5 fL (7.4-10.4); Platelet Count 353 thou/uL (130-400); RBC Distribution Width 15.1 % (11.5-14.5); Red Blood Cell (RBC) Count 4.71 mill/uL (4.70-6.10); White Blood Cell (WBC) Count 18.3 thou/uL (4.8-10.8)
[2018-01-01 14:27] LABS: ALT (SGPT) 12 U/L (8-55); AST (SGOT) 18 U/L (5-34); Albumin 3.1 g/dL (3.4-4.8); Alkaline Phosphatase 54 U/L (40-150); Anion Gap 18 mmol/L (10-20); BUN (Urea Nitrogen) 101 mg/dL (8.4-25.7); Bilirubin, Total 0.5 mg/dL (0.2-1.2); Calc. Creatinine Clearance 0 mL/min (70-130); Calcium 8.8 mg/dL (7.8-10.44); Carbon Dioxide 22 mmol/L (23-31); Chloride 91 mmol/L (98-107); Estimated GFR-MDRD 25; Globulin 2.9 g/dL (2.4-3.5); Glucose 98 mg/dL (83-110); Lipase 4 U/L (8-78); Sodium 124 mmol/L (136-145)
[2018-01-01 14:30] LABS: Potassium 6.7 mmol/L (3.5-5.1)
[2018-01-01 14:32] LABS: Band 14 % (5-11); Eosinophils 1 % (0-10); Lymphocytes 4 % (21-51); MDiff Complete? YES; Monocytes 4 % (0-10); Neutrophil 77 % (42-75); PLT Morphology Comment Appears Adequate; RBC Morphology Normal
[2018-01-01 14:44] LABS: Vacuoles SLIGHT
[2018-01-01] MEDS ORDERED: Ondansetron HCl/PF 4 MG/2 ML Vial IVP PRN (15:55)
[2018-01-01] MEDS ORDERED: Ondansetron ODT 4 MG TAB PO PRN (15:55)
[2018-01-01 18:07] VITALS: BMI 19.8
--- NOTE | 2018-01-01 22:12 | HP ---
HISTORY OF PRESENT ILLNESS: This is an 82-year-old male with past medical history significant of [employer] D, gastric adenocarcinoma with metastasis, chronic systolic heart failure who is presenting to the em ergency room for abdominal distention and discomfort. Per the patient, he is here in the ED because he was having some abdominal discomfort, which his pain medication seemed to help. Patient also stat es that he is just in the hospital and they are seeking for inpatient hospice. Per the patient yeste rday, he was in the hospital and received paracentesis, which he took a liter of fluid off and patien t felt little better. Patient has had paracentesis multiple times for therapeutic purposes; however, this time around, patient and the family understand that patient's prognosis is poor, in that they w anted to participate in inpatient hospice and they want palliative measures. Upon further conversati on with the family, the oncologist notes the patient is in the hospital and that they have decided th at they do not want any extreme measures; however, speaking to the , the stated that anythin g that will improve the patient's mental status will be welcomed as long as it is not very invasive. Therefore, it was explained to the family that we can do Lasix to help with ascites and we can do Ka yexalate and lactulose to help improve the patient's mental status and also decrease patient's potass ium. At this point, we are going to hold off spironolactone, since spironolactone, we will increase patient's potassium. We will also do pain management and help with patient's abdominal discomfort. The family agreed to these measures. REVIEW OF SYSTEMS: At this point, patient denies any shortness of breath, chest pain, palpitations, chills, fever but admits to some abdominal distention, discomfort. Review of systems, positive for a bdominal discomfort, but negative for the ones as stated in the HPI. PAST MEDICAL HISTORY: COPD, gastric adenocarcinoma, hyperlipidemia, chronic systolic heart failure, benign prostatic hypertrophy, coronary artery disease, hypertension. PAST SURGICAL HISTORY: Significant for cataract surgery, thoracentesis, paracentesis, cystoscopy. ALLERGIES: Denies any drug allergies. CURRENT HOME MEDICATIONS: Patient states that he stopped taking all his home medications. SOCIAL HISTORY: Patient currently lives at home. Patient was a former smoker, quit recently about c ouple of months ago. Patient's stays with him at home. Denies alcohol or illicit drug use. FAMILY HISTORY: Both parents had congestive heart failure. CODE STATUS: Patient is DNR/DNI. Patient does not want to be treated aggressively. Patient wants i npatient hospice. PHYSICAL EXAMINATION: VITAL SIGNS: Blood pressure during admission was 91/50, temperature 97.4, oxygen saturation has been around 95 on room air. GENERAL: Patient is lying in bed comfortably, does not appear to be in any acute distress. Patient is cachectic, protuberant abdomen. HEENT: Normocephalic, atraumatic. Pupils are equally round and reactive to light. Extraocular move ments are intact. No scleral icterus. NECK: Trachea is midline. No JVD. Mucous membranes appear dry. CARDIOVASCULAR: S1, S2, regular rate and rhythm. No murmurs, no gallops appreciated. LUNGS: Clear to auscultation bilaterally in the anterior lung davey. ABDOMEN: Protuberant abdomen, slightly tender with deep palpation. Positive fluid wave noted. Abdo men is distended. There is no peritoneal signs, no rigidity, no guarding. EXTREMITIES: Upper extremity and lower extremity in 5/5 upper extremity strength, 5/5 lower extremit y strength. Good pulses bilaterally in the upper extremities and lower extremities. NEURO: Within normal limits. SKIN: Warm, dry, and intact. PSYCHIATRIC: Patient is somnolent but appears alert and oriented x3. Good affect. LABORATORY DATA: EKG showed first-degree AV block. CBC: WBC 18.3, hemoglobin 15.1, hematocrit 44.6 , platelet 353, bands of 14, lipase is 4. Electrolytes, sodium is 124, potassium is 6.7, chloride is 91, carbon dioxide 22, BUN 101, creatinine 2.45, GFR is 25. ASSESSMENT AND PLAN: This is an 82-year-old male with multiple comorbidities being admitted for: 1. Abdominal distention and discomfort, likely secondary to ascites due to patient's metastatic lazarus ocarcinoma of the gastric. At this point, Oncology was consulted and per the ED Oncology was reached out. Per discussion with the family and Oncology, patient stated that he wants to have only palliat wilberto measures. At this point spoken to the patient, patient stated that he wants inpatient hospice. ED physician has consulted and contacted palliative care. We will try and speak to case workers and palliative team to see if we can get patient in inpatient hospice. At this point, we will do palliat wilberto measures and give patient doses of Lasix to reduce patient's ascitic fluids. We will hold spiron olactone at this time and we will give patient lactulose and Kayexalate to improve the patient's ment ation and also to reduce potassium levels. We will give patient morphine doses p.r.n. to help with p ain, but we will be very careful with the doses of morphine since patient's blood pressure is trendin g on the low side around 91/55. In situations where by patient's blood pressure is very low, patient can be given [place] p.r.n. to help with pain. Especially since he helped in the ED when [place] was gi roma x4. We will continue to monitor the patient very closely and we will follow up with palliative c are in the a.m. 2. History of chronic obstructive pulmonary disease. 3. History of heart failure. 4. History of hypertension. 5. History of hyperlipidemia, history of BPH. At this point, patient does not want to take any of his medication. Patient is being made DNR and is going to participate in palliative measures. We will monitor the patient in the Oncology unit. We will consult Oncology to evaluate the patient and to help with the palliative team with further plans . DISPOSITION: The patient is going to be accepted to the oncology floor.
[2018-01-01] MEDS: Acetaminophen 325 MG TAB PO PRN (22:45)
[2018-01-02] MEDS: HYDROcodone/Acetaminophen 10/325 mg Tablet PO PRN ×3 (04:30→17:10)
[2018-01-02 06:15] LABS: Anion Gap 14 mmol/L (10-20); BUN (Urea Nitrogen) 110 mg/dL (8.4-25.7); Calc. Creatinine Clearance 23 mL/min (70-130); Calcium 8.6 mg/dL (7.8-10.44); Carbon Dioxide 23 mmol/L (23-31); Chloride 93 mmol/L (98-107); Estimated GFR-MDRD 26; Glucose 109 mg/dL (83-110); Sodium 124 mmol/L (136-145)
[2018-01-02] MEDS ORDERED: Furosemide 20 MG TAB PO SCH (09:00)
[2018-01-02] MEDS ORDERED: Sodium Chloride 0.9% 1,000 ML IV SCH (11:45)
[2018-01-02 11:57] LABS: Anion Gap 13 mmol/L (10-20); BUN (Urea Nitrogen) 111 mg/dL (8.4-25.7); Calc. Creatinine Clearance 22 mL/min (70-130); Calcium 8.5 mg/dL (7.8-10.44); Carbon Dioxide 25 mmol/L (23-31); Chloride 92 mmol/L (98-107); Estimated GFR-MDRD 25; Glucose 114 mg/dL (83-110); Potassium 5.7 mmol/L (3.5-5.1); Sodium 124 mmol/L (136-145)
[2018-01-02] MEDS ORDERED: Albumin 25% 25 GM/100 ML BOT IVPB SCH (12:00)
[2018-01-02] MEDS: Acetaminophen 325 MG TAB PO PRN (12:24)
--- NOTE | 2018-01-02 12:56 | RAD ---
SUPINE ABDOMEN: Portable supine abdomen obtained. INDICATION: Abdominal distention. COMPARISON: No comparison. FINDINGS: There is gaseous dilatation of the colon with stool in the rectum. There is mild gaseous distention of visualized small bowel loops. IMPRESSION: Gaseous distention and dilatation of small and large bowel loops. POS: [facility]
--- NOTE | 2018-01-02 14:53 | ULT ---
RENAL ULTRASOUND: HISTORY: Renal failure. FINDINGS: The right kidney measured 10 cm in length. The left kidney measures 9.3 cm in length. Cyst from the lateral mid left kidney measures 5-6 cm diameter. No evidence of hydronephrosis. Cortical echogenicity is mildly increased. There is small volume ascites noted. Bladder is mildly distended and appears unremarkable. IMPRESSION: 1. Mild increased cortical echogenicity. 2. Left renal cyst. 3. Small volume ascites. POS: [facility]
[2018-01-02 15:55] VITALS: TEMP 97.5
[2018-01-02 15:55] LABS: Bilirubin Small (Negative); Blood, Urine Large (Negative); Clarity TURBID (Clear); Glucose, Urine (Dipstick) Negative (Negative); Leukocyte Small (Negative); Nitrite Negative (Negative); Protein, Urine (Dipstick) Negative (Neg-Trace); Specific Gravity, Urine 1.021 (1.002-1.036); Urobilinogen 0.2 mg/dL (0.2-1.0)
[2018-01-02 15:58] LABS: Bacteria/HPF None Seen HPF (None Seen); Pathc Cast-AUWi Flag 2.03 (0-2.49); Squamous Epithelial 0-3 HPF (0-3)
[2018-01-02 16:01] LABS: Yeast-AUWi Flag 94.2 (0-25.0)
--- NOTE | 2018-01-02 16:08 | CON ---
DATE OF CONSULTATION: 01/02/2018 HISTORY OF PRESENT ILLNESS: Mr. Kerr is an 82-year-old white male with known history of gastric car cinoma with metastasis, ascites, COPD, CHF, and admitted for generalized malaise and abdominal discom fort. He was found to be severely hyperkalemic. He was given Kayexalate and this improved potassium from 6.8 to most recent value of 6.0. We are now being consulted for his acute kidney injury also. According to the , the patient has much decreased p.o. intake for the last few weeks. He is ess entially not eating. Of interest, the patient is noted to be on KEVIN inhibitors and diuretics at home . I am very suspicious that the acute kidney injury may all be hemodynamically mediated renal dysfun ction. REVIEW OF SYSTEMS: Positive for abdominal swelling, no nausea, no vomiting. Positive for chronic sh ortness of breath. Decreased appetite, decreased energy level. No headache, no fever or chills, no gross hematuria, no dysuria, no urinary frequency, no hematochezia, no melena, no hematemesis, no fev er or chills, no chest pain. MEDICATIONS: Currently on DuoNeb q.6 hours p.r.n., furosemide 20 mg daily, lactulose p.r.n., Zofran 4 mg q.6 hours p.r.n., status post Kayexalate. HOME MEDICATIONS: Included cholecalciferol 50,000 units subcu p.o. q.7 days, Singulair 10 mg at bedt aretha, furosemide 20 mg daily, carvedilol 6.25 mg b.i.d., amiodarone 200 mg p.o. b.i.d., lisinopril 20 mg daily, spironolactone 25 mg q.a.m., tamsulosin 0.4 mg at bedtime, avodart 0.5 mg once a day, atorv astatin 40 mg at bedtime. PAST MEDICAL HISTORY: Includes COPD, CHF, BPH, hyperlipidemia, history of gastric adenocarcinoma wit h metastasis, history of SVT, coronary artery disease. PAST SURGICAL HISTORY: Status post upper GI endoscopy, status post paracentesis, status post thorace ntesis, cataract surgery and cystoscopy. ALLERGIES: None. TRAUMA: None. IMMUNIZATIONS: Unknown. HOSPITALIZATIONS: Please see past medical history. SOCIAL HISTORY: The patient is and lives in [place]. He has one child. No history of sm oking, no alcohol intake, no IV drug abuse. Alcohol rare. Previous history of smoking. FAMILY HISTORY: Noncontributory. PHYSICAL EXAMINATION: VITAL SIGNS: Blood pressure is noted at 95/54, heart rate 78, respiratory rate 18, temperature 97.6, pulse ox 91%. GENERAL: Noted to be awake, alert, comfortable, not in overt distress. SKIN: Adequate turgor. HEENT: Pinkish conjunctivae, anicteric sclerae. NECK: No neck mass, no carotid bruits, no JVD. CHEST: No deformities. LUNGS: Decreased breath sounds, no wheezing. HEART: Normal sinus rhythm. No murmur, no gallops or rubs. ABDOMEN: Globular, soft. Positive for ascites. EXTREMITIES: Trace edema. NEUROLOGIC: Awake, oriented to 3 spheres. Moving all extremities. No tremors. No asterixis. LABORATORY: Of 01/01/2018, white count 18.3, hemoglobin 15.1, sodium 124, potassium 6.0, chloride 93 , carbon dioxide 23, BUN 110, creatinine 2.44, glucose 109, calcium 8.6. On 01/01/2018, potassium 6. 7, albumin 3.1. ASSESSMENT AND PLAN: 1. Acute kidney injury -- consider hemodynamically mediated renal dysfunction. Due to the low blood pressure, previous intake of KEVIN inhibitors and diuretics, this all could be contributing to the acu te kidney injury. We will review a urinalysis with this patient as well as serum chemistry. We will start albumin infusion 25 grams IV q.6 hours. We will hold off furosemide temporarily. If consider normal saline at 75 mL per hour. 2. Hyponatremia -- this is most likely hypovolemic hyponatremia. 3. Hyperkalemia -- much improved potassium from 6.7 to 6.0. He is off his KEVIN inhibitors and spiron olactone. Continue low potassium diet. Overall, prognosis remains poor with this patient. There is no indication for any acute dialytic int ervention.
[2018-01-02 16:14] LABS: RBC/HPF GREATER THAN 50-TNTC HPF (0-3)
[2018-01-02 16:15] LABS: Hyaline Casts/LPF NONE SEEN LPF (0-3 Hyaline)
[2018-01-02 16:46] LABS: Creatinine, Urine 163.29 mg/dL (63-166); Sodium, Urine Less than 20 mmol/L (Not Available)
[2018-01-02 17:56] VITALS: BP 115/78
--- NOTE | 2018-01-03 11:08 | DIS ---
DATE OF DISCHARGE: 01/02/2018 DISCHARGE DISPOSITION: Inpatient hospice. The patient was seen and examined on the day of discharge. Denies any new complaints, feels generall y weak. BRIEF HOSPITAL COURSE: The patient is an 82-year-old male with COPD, gastric adenocarcinoma, and con gestive heart failure, who presented to the hospital with abdominal discomfort. Please refer to the history and physical for further details. The patient was admitted to the hospital with a diagnosis of worsening abdominal distention causing p ain. He was also found to have significant acute kidney injury with creatinine 2.45 with BUN 101 and potassium of 6.7. He was also evaluated by Nephrology, Dr. Browning. Per family and the patient request , hospice was consulted. He was accepted by inpatient hospice. Plan of care was discussed with the patient and the family in detail. They stated understanding. DISCHARGE MEDICATIONS: Per inpatient hospice. FINAL DIAGNOSES: 1. Abdominal discomfort due to worsening ascites. 2. Gastric adenocarcinoma with metastasis. 3. Chronic systolic heart failure. 4. Benign prostatic hypertrophy. 5. Coronary artery disease. 6. Hypertension. 7. Severe acute kidney injury with life-threatening hyperkalemia. 8. Metabolic acidosis. 9. Moderate protein-calorie malnutrition. 10. Sepsis with acute organ dysfunction of unclear etiology. 11. Physical deconditioning.
--- NOTE | 2018-01-05 15:15 | EKG ---
Test Reason : Blood Pressure : / mmHG Vent. Rate : 079 BPM Atrial Rate : 079 BPM P-R Int : 214 ms QRS Dur : 106 ms QT Int : 388 ms P-R-T Axes : 109 051 074 degrees QTc Int : 444 ms Sinus rhythm with 1st degree A-V block Low voltage QRS Nonspecific ST abnormality Abnormal ECG Confirmed by BARBER LEA DO ([id number]), online editor GIULIANO WRIGHT ([id number] on 01/05/2018 3:14:34 PM Referred By: Confirmed By:BARBER LEA DO
== END 2018-01-02 17:44 | disposition hospice, inpatient (51) | DRG 951 ==
LOC: ERS 12:50 → T4-A 15:47 → OBSVTOIN 01-02 09:13
PROVIDERS: ADMIT Internal Medicine; ATTEND Internal Medicine
DX: Z51.5 Encounter for palliative care (principal); A41.9 Sepsis, unspecified organism; R65.20 Severe sepsis without septic shock; R18.8 Other ascites; I50.22 Chronic systolic (congestive) heart failure; C16.9 Malignant neoplasm of stomach, unspecified; C79.9 Secondary malignant neoplasm of unspecified site; N17.9 Acute kidney failure, unspecified; E44.0 Moderate protein-calorie malnutrition; E87.1 Hypo-osmolality and hyponatremia; J44.9 Chronic obstructive pulmonary disease, unspecified; I11.0 Hypertensive heart disease with heart failure; Z66 Do not resuscitate; E78.5 Hyperlipidemia, unspecified; N40.0 Benign prostatic hyperplasia without lower urinary tract symptoms; I25.10 Atherosclerotic heart disease of native coronary artery without angina pectoris; Z87.891 Personal history of nicotine dependence; E87.5 Hyperkalemia; Z68.20 Body mass index [BMI] 20.0-20.9, adult
CPT/HCPCS: 36415; 49083; 74018; 76770; 80048; 80053; 81001; 82570; 83615; 83690; 84157; 84300; 85025; 85610; 85730; 88112; 88305; 93005; 94640; J2270; J7620; P9047